=== PATIENT | male | born 1955 | race American Indian/Alaskan Native ===

== ENCOUNTER 2021-06-30 12:20 | Inpatient (IN) | payer SELFPAY ==
--- NOTE | 2021-06-30 12:36 | Emergency Department Report ---
Blank Doc - Documentation Documentation: [facility] Consult Note # Demographics Consult Type: Acute Stroke Level 2 (4.5-24 hrs) Patient Location: Emergency Room First Name: Vinay Last Name: Willow Gender: Male Facility: [facility] Time of Initial Page ( Time): 06/30/2021, 12:06 Time of Return Call ( Time): 06/30/2021, 12:06 # HPI History: pt lives in an extended stay hotel, found by staff down for unknwon period of time. has right sided weakness and aphsia # Scores Level of Consciousness 1a: [0] = Alert; keenly responsive LOC Questions 1b: [2] = Answers neither correctly LOC Commands 1c: [0] = Performs both tasks correctly Best Gaze 2: [0] = Normal Visual 3: [0] = No visual loss Facial Palsy 4: [2] = Partial paralysis Motor Arm Left 5a: [0] = No drift Motor Arm Right 5b: [4] = No movement Motor Leg Left 6a: [0] = No drift Motor Leg Right 6b: [3] = No effort against gravity Limb Ataxia 7: [0] = Absent Sensory 8: [0] = Normal Best Language 9: [2] = Severe aphasia Dysarthria 10: [1] = [id number]-[id number] dysarthria Extinction and Inattention 11: [0] = No abnormality NIHSS Total: 14 # PMH-FH-SH Past Medical History: A-fib unknown Medications: unknown # Data Head CT: preliminarily reviewed by me, please refer to radiology read for official reading subacute ischemic stroke # Assessment Impression: Ischemic Stroke (Acute) # Plan Thrombolytic/Intervention: NOT IV Thrombolysis or IA Intervention candidate Thrombolytic Exclusion: > 4.5 hours Intraarterial Exclusion: unfavorable imaging/hypodensity Blood Pressure Management: labetolol Target Blood Pressure: SBP < 220 SBP > 100 Labs: hemoglobin A1c lipid panel Imaging: (urgency: STAT): CT Angiogram Head and CT Angiogram Neck AND call back with results if abnormal Imaging: (urgency: routine): MRI Brain without contrast Diagnostic Test: echo without bubble study Therapy/Evaluation: NPO until swallow evaluation PT/OT evaluation speech/swallow consultation Medication: aspirin 81 mg daily start statin with goal of LDL < 70 DVT Prophylaxis: SCD Other: LDL < 70 If patient has any neurological deterioration please call me back immediately permissive hypertension telemetry monitoring I have discussed my recommendations with the referring provider Disposition: admit # Logistics Telemedicine: Interactive 2 way audio and visual telecommunication technology was utilized during this visit
--- NOTE | 2021-06-30 13:05 | Cat Scan Report ---
CT HEAD WITHOUT CONTRAST INDICATION / CLINICAL INFORMATION: CODE STROKE CALL ER MAIN AT 8199 Stroke symptoms. TECHNIQUE: All CT scans at this location are performed using CT dose reduction for ALARA by means of automated e xposure control. COMPARISON: None available. FINDINGS: HEMORRHAGE: No evidence of intracranial hemorrhage or extra-axial fluid collection. EXTRA-AXIAL SPACES: Cortical sulci and sylvian fissures are enlarged reflecting a degree of parenchym al volume loss which greater than expected for the patient's age of 65 years. Basilar cisterns have a n unremarkable appearance. VENTRICULAR SYSTEM: The third and lateral ventricles are mildly enlarged reflecting presence of paren chymal volume loss. CEREBRAL PARENCHYMA: There is a region of decreased brain parenchymal attenuation in the left cerebra l hemisphere involving portions of the posterior frontal and occipital lobes secondary to recent post erior division left MCA infarction. There is mild mass effect with effacement of adjacent cortical hendricks lci. There is no indication of hemorrhagic transformation. I suspect that this left MCA infarction is at least 8 to 12 hours old. Additionally noted is a focus of decreased brain parenchymal attenuation in the left gangliocapsular region consistent with infarction, age indeterminate. Periventricular an d deep white matter lucency is observed. This is probably secondary to microvascular ischemic change. MIDLINE SHIFT OR HERNIATION: There is no midline shift. CEREBELLUM / BRAINSTEM: Brainstem has an unremarkable appearance. Age related cerebellar atrophy is n oted. MIDLINE STRUCTURES:Pituitary gland has an unremarkable appearance. No abnormalities are seen in the p ineal region. INTRACRANIAL VESSELS:Calcified atherosclerotic plaque is present along the course of the cavernous se gments of both internal carotid arteries. Similar findings are seen at the distal vertebral arteries. CRANIOCERVICAL JUNCTION:No significant abnormality. ORBITS: visualized portions of the orbits have an unremarkable appearance. SOFT TISSUES of HEAD: No significant abnormality. CALVARIUM: Evaluation of bone windows reveals no abnormalities. PARANASAL SINUSES / MASTOID AIR CELLS: Paranasal sinuses are free from inflammatory mucosal disease. Mastoid air cells are normally pneumatized. ADDITIONAL FINDINGS: None. IMPRESSION: 1. Evidence of recent infarction involving anterior division left MCA territory. 2. No indication of intracranial hemorrhage. CODE STROKE: Time of Communication (CAFE SERVER/CDT): 1150 central standard time Licensed Practitioner Receiving Report: Dr. Arline Mckinley, [facility] emergency department Signer Name: Yogesh Alcala MD Signed: 06/30/2021 1:00 PM Workstation Name: [id number]
--- NOTE | 2021-06-30 13:22 | Cat Scan Report ---
CTA neck without and with intravenous contrast material CLINICAL HISTORY: CODE STROKE CALL ER MAIN AT 8199 stroke sx OMNI 350 100 ML TECHNIQUE: Following acquisition of a timing bolus 0.625 mm thick contiguous axial scans were obtained from aort ic arch to the skull base during rapid bolus intravenous contrast infusion. In addition to evaluation of axial source images multiplanar reconstructions were produced and reviewed for this report. 3 angella ne MIP reconstructions were produced and reviewed. Contrast dose report: Omnipaque 350: 100 ml, administered intravenously All CT examinations performed at this facility utilize modulated dose reduction, iterative reconstruc tion or weight-based dosing, as appropriate, to obtain a radiation dose which is as low as can reason ably be achieved. FINDINGS: Thoracic aorta:No abnormalities are identified along the course of the thoracic aorta.. There is a co mmon origin of the brachiocephalic and left common carotid artery. This is a common anatomical variat ion. The origins of the great vessels have an otherwise unremarkable appearance. Brachiocephalic saad ry, left common carotid artery origin and left subclavian artery all have an unremarkable appearance. Right carotid artery:No abnormalities are seen along the course of the RCCA, at the right carotid bif urcation or along the cervical portions of the GREGORIA. Note is made of moderate tortuosity of the dista l R ICA. Left carotid artery: No abnormalities are noted along the course of the left common carotid artery, a t the left carotid bifurcation or along the course of the cervical segments of the LICA. Incidental n ote is made of moderate tortuosity of the distal LICA. Posterior circulation:The vertebral arteries have an unremarkable appearance. Left vertebral artery i s dominant. Both vertebral arteries contribute to the basilar artery origin. The basilar artery has a n unremarkable appearance. The degree of stenosis, if any, is determined utilizing NASCET like criteria. In this case there is no indication of hemodynamically significant stenosis at the carotid bifurcations or elsewhere. Evaluation of the nonvascular soft tissue structures reveal no abnormality. There is no indication of cervical lymphadenopathy. No abnormalities are seen along the course of the airway. Visualized porti ons of the parotid glands and the submandibular salivary glands have a normal appearance. Thyroid gla nd has a normal appearance. Evaluation of the lung apices reveals no evidence of lung nodule or infil trate. Evaluation of the cervical spine is remarkable for moderate cervical spondylosis with advanced facet arthropathy is evident at the C4-5 level left. There is no indication of central canal stenosis. IMPRESSION: 1. No indication of hemodynamically significant stenosis at the carotid bifurcations or elsewhere. CTA head with intravenous contrast CLINICAL HISTORY: CODE STROKE CALL ER MAIN AT 8199 stroke sx OMNI 350 100 ML TECHNIQUE: 0.625 mm thick contiguous axial scans were obtained from the skull base to the skull vertex during r apid bolus administration of intravenous contrast material. Multiplanar reconstructions were produced in the coronal and sagittal planes. In addition 3 plane MIP instructions were produced and reviewed for this report. The axial source images and reconstructed images were reviewed for this report. CONTRAST DOSE REPORT: Omnipaque 350: 100 ml administered intravenously. All CT scans at this location are performed using CT dose reduction for [employer] by means of automated e xposure control. FINDINGS: Internal carotid arteries:Cassandra, cavernous, opthalmic, clinoid and supraclinoid segments of the ICAs have an unremarkable appearance. Middle cerebral arteries:Evaluation of the left middle cerebral artery reveals a decreased contrast o pacification of a proximal M2 branch of the left MCA consistent with occlusion or partial occlusion o f this vessel. In addition several M2 segments of the left MCA show decreased contrast enhancement co mpared to normal adjacent branch vessels. Right middle cerebral artery has a normal appearance. There is no indication of stenosis along the course of the M1 segment. Normal M2 and M3 branches are obser kyree. Anterior cerebral arteries:Bilaterally symmetrical A1 segments are demonstrated. No abnormalities are seen along the course of the A2 segments or their visualized pericallosal branches. Intact anterior communicating artery is identified. Vertebral arteries:Bilaterally symmetrical vertebral arteries are demonstrated. Both vertebral arteri es contribute to the basilar artery origin. Basilar artery:Basilar artery has an unremarkable appearance. Posterior cerebral arteries:Bilaterally symmetrical posterior cerebral arteries are identified. Post erior communicating arteries are not visualized. [place]:Not intact. see above. Dural sinuses: Dural venous sinuses are well demonstrated on this exam. There is no evidence of dural sinus thrombosis. IMPRESSION: Findings suggest occlusion or partial occlusion of the proximal M2 branch of the left middle cerebral artery as described above. CODE STROKE: Time of Communication (FIREFIGHTING EQUIPMENT SPECIALIST/CDT): 1214 Central standard time Licensed Practitioner Receiving Report: Dr. Arline Akins, [facility] emergency department. Signer Name: Yogesh Alcala MD Signed: 06/30/2021 1:17 PM Workstation Name: [id number]
[2021-06-30 13:23] LABS: Basophils % (Auto) 0.4 % (0.0-1.8); Eosinophils % (Auto) 0.1 % (0.0-4.3); Hematocrit 47.4 % (35.5-45.6); Hemoglobin 16.2 gm/dl (11.8-15.2); Lymphocytes # (Auto) 0.7 K/mm3 (1.2-5.4); Lymphocytes % (Auto) 8.2 % (13.4-35.0); Mean Corpuscular HGB Conc 34 % (32-34); Mean Corpuscular Volume 82 fl (84-94); Monocytes # (Auto) 0.4 K/mm3 (0.0-0.8); Monocytes % (Auto) 5.3 % (0.0-7.3); Platelet Count 215 K/mm3 (140-440); Red Blood Count 5.75 M/mm3 (3.65-5.03); Red Cell Distribution Width 13.6 % (13.2-15.2)
[2021-06-30] MEDS ORDERED: ASPIRIN 300 MG RECT SUPP PR ONE (13:25)
[2021-06-30] MEDS ORDERED: SODIUM CHLORIDE 0.9% 500 ML 500 ML IV ONE (13:25)
[2021-06-30] MEDS ORDERED: METOPROLOL TARTRATE 5 MG/5 ML INJ IV ONE (13:26)
[2021-06-30 13:35] LABS: INR 0.88 (0.87-1.13); Partial Thromboplastin Time 24.1 Sec. (24.2-36.6)
[2021-06-30 13:36] LABS: Thrombin Time 17.5 Sec. (15.1-19.6)
[2021-06-30 14:29] LABS: Creatine Kinase MB 3.3 ng/mL (0.0-4.0)
[2021-06-30 14:43] LABS: Alanine Aminotransferase 18 units/L (7-56); Albumin 4.5 g/dL (3.9-5); BUN/Creatinine Ratio 12; Blood Urea Nitrogen 14 mg/dL (9-20); Calcium 9.9 mg/dL (8.4-10.2); Hemolysis Index 68
[2021-06-30] MEDS ORDERED: ASPIRIN 81 MG TAB CHEW PO ONE (15:06)
--- NOTE | 2021-06-30 15:06 | Emergency Department Report ---
ED Altered Mental Status HPI - General Chief Complaint: Altered Mental Status Stated Complaint: STROKE Time Seen by Provider: 06/30/21 12:23 Source: EMS Mode of arrival: Stretcher Limitations: Altered Mental Status - History of Present Illness Initial Comments: cva unknown down time found in hotel parking lot pt was found down by staff in the extended stay hotel , unknown time , right wide weakness and aphasia MD Complaint: altered mental status, decreased responsiveness, weakness -: unknown Consistency of Symptoms: constant Context: unknown Associated Symptoms: denies: denies other symptoms, chest pain, cough, diaphoresis, fever/chills, headaches, malaise, nausea/vomiting, rash, seizure, shortness of breath, syncope, foul smelling urine, difficulty walking, diarrhea, incontinence - Related Data Allergies Allergy/AdvReac Type Severity Reaction Status Date / Time Penicillins Allergy Hives Verified 06/30/21 13:15 ED Review of Systems ROS: Stated complaint: STROKE Other details as noted in HPI Comment: All other systems reviewed and negative ED Past Medical Hx - Past Medical History Previous Medical History?: No - Social History Smoking Status: Unknown if ever smoked Substance Use Type: None ED Physical Exam - General Limitations: Altered Mental Status General appearance: obese, other (apahisc non verbal and weak on right side wiuth facial droop ) - Head Head exam: Present: atraumatic, normocephalic - Eye Eye exam: Present: normal appearance - ENT ENT exam: Present: mucous membranes moist - Neck Neck exam: Present: normal inspection - Respiratory Respiratory exam: Present: normal lung sounds bilaterally. Absent: respiratory distress - Cardiovascular Cardiovascular Exam: Present: regular rate, tachycardia. Absent: systolic murmur, diastolic murmur, rubs, gallop - GI/Abdominal GI/Abdominal exam: Present: soft, normal bowel sounds - Rectal Rectal exam: Present: deferred - Extremities Exam Extremities exam: Present: normal inspection - Back Exam Back exam: Present: normal inspection - Expanded Neurological Exam Expanded Neurological exam: Present: innattentive, expressive aphasia Patient oriented to: Absent: person, place, time Speech: Present: expressive aphasia Motor strength exam: RUE: 0, RLE: 0 Best Eye Response (Vicki): (4) open spontaneously Best Motor Response (Vicki): (5) localizes to pain Best Verbal Response ([place]): (1) no verbal response Vicki Total: 10 - Psychiatric Psychiatric exam: Present: normal mood - Skin Skin exam: Present: warm, dry, intact, normal color. Absent: rash - Assessment Assessment Interval: Baseline - Level of Consciousness 1a. Level of Consciousness: alert/keenly responsive - LOC Questions 1b. LOC Questions: answers no questions correctly - LOC Command 1c. LOC Commands: performs tasks correctly - Best Gaze 2. Best Gaze: normal - Visual 3. Visual: no visual loss - Facial Palsy 4. Facial Palsy: minor paralysis - Motor Arm 5a. Motor Arm Left: no drift 5b. Motor Arm Right: drift - Motor Leg 6a. Motor Leg Left: no movement 6b. Motor Leg Right: no gravity effort - Limb Ataxia 7. Limb Ataxia: absent - Sensory 8. Sensory: normal - Best Language 9. Best Language: severe aphasia - Dysarthria 10. Dysarthria: mild/moderate dysarthria - Extinction and Inattention 11. Extinction/Inattention: no abnormality - Scoring Total Score: 14 Stroke Severity: Moderate Stroke ED Course Vital Signs 06/30/21 06/30/21 06/30/21 12:43 12:46 12:56 Temperature 98.0 F Pulse Rate 89 93 H 84 Respiratory 22 20 16 Rate Blood Pressure 212/110 O2 Sat by Pulse 94 93 92 Oximetry 06/30/21 06/30/21 06/30/21 13:00 13:16 13:49 Temperature Pulse Rate 88 92 H 126 H Respiratory 19 22 Rate Blood Pressure 207/135 207/135 207/121 O2 Sat by Pulse 95 96 Oximetry - Lab Data Result diagrams: 06/30/21 13:11 06/30/21 13:11 Lab Results 06/30/21 06/30/21 06/30/21 Range/Units 13:11 13:11 13:11 WBC 8.4 (4.5-11.0) K/mm3 RBC 5.75 H (3.65-5.03) M/mm3 Hgb 16.2 H (11.8-15.2) gm/dl Hct 47.4 H (35.5-45.6) % MCV 82 L (84-94) fl MCH 28 (28-32) pg MCHC 34 (32-34) % RDW 13.6 (13.2-15.2) % Plt Count 215 (140-440) K/mm3 Lymph % (Auto) 8.2 L (13.4-35.0) % [place] % (Auto) 5.3 (0.0-7.3) % Eos % (Auto) 0.1 (0.0-4.3) % Baso % (Auto) 0.4 (0.0-1.8) % Lymph # (Auto) 0.7 L (1.2-5.4) K/mm3 [place] # (Auto) 0.4 (0.0-0.8) K/mm3 Eos # (Auto) 0.0 (0.0-0.4) K/mm3 Baso # (Auto) 0.0 (0.0-0.1) K/mm3 Seg Neutrophils % 86.0 H (40.0-70.0) % Seg Neutrophils # 7.2 (1.8-7.7) K/mm3 PT 12.9 (12.2-14.9) Sec. INR 0.88 (0.87-1.13) APTT 24.1 L (24.2-36.6) Sec. Thrombin Time 17.5 (15.1-19.6) Sec. Sodium (137-145) mmol/L Potassium (3.6-5.0) mmol/L Chloride (98-107) mmol/L Carbon Dioxide (22-30) mmol/L Anion Gap mmol/L BUN (9-20) mg/dL Creatinine (0.8-1.3) mg/dL Estimated GFR ml/min BUN/Creatinine Ratio % Glucose (75-100) mg/dL Calcium (8.4-10.2) mg/dL Total Bilirubin (0.1-1.2) mg/dL ALT (7-56) units/L Alkaline Phosphatase (35-129) units/L Total Creatine Kinase 174 H (55-170) units/L CK-MB (CK-2) 3.3 (0.0-4.0) ng/mL CK-MB (CK-2) Rel Index 1.8 (0-4) Troponin T < 0.010 (0.00-0.029) ng/mL Total Protein (6.3-8.2) g/dL Albumin (3.9-5) g/dL Albumin/Globulin Ratio % 03// Range/Units 13:11 WBC (4.5-11.0) K/mm3 RBC (3.65-5.03) M/mm3 Hgb (11.8-15.2) gm/dl Hct (35.5-45.6) % MCV (84-94) fl MCH (28-32) pg MCHC (32-34) % RDW (13.2-15.2) % Plt Count (140-440) K/mm3 Lymph % (Auto) (13.4-35.0) % [place] % (Auto) (0.0-7.3) % Eos % (Auto) (0.0-4.3) % Baso % (Auto) (0.0-1.8) % Lymph # (Auto) (1.2-5.4) K/mm3 [place] # (Auto) (0.0-0.8) K/mm3 Eos # (Auto) (0.0-0.4) K/mm3 Baso # (Auto) (0.0-0.1) K/mm3 Seg Neutrophils % (40.0-70.0) % Seg Neutrophils # (1.8-7.7) K/mm3 PT (12.2-14.9) Sec. INR (0.87-1.13) APTT (24.2-36.6) Sec. Thrombin Time (15.1-19.6) Sec. Sodium 142 (137-145) mmol/L Potassium 5.0 (3.6-5.0) mmol/L Chloride 105.5 (98-107) mmol/L Carbon Dioxide 24 (22-30) mmol/L Anion Gap 18 mmol/L BUN 14 (9-20) mg/dL Creatinine 1.2 (0.8-1.3) mg/dL Estimated GFR > 60 ml/min BUN/Creatinine Ratio 12 % Glucose 101 H (75-100) mg/dL Calcium 9.9 (8.4-10.2) mg/dL Total Bilirubin 1.40 H (0.1-1.2) mg/dL ALT 18 (7-56) units/L Alkaline Phosphatase 69 (35-129) units/L Total Creatine Kinase (55-170) units/L CK-MB (CK-2) (0.0-4.0) ng/mL CK-MB (CK-2) Rel Index (0-4) Troponin T (0.00-0.029) ng/mL Total Protein 7.3 (6.3-8.2) g/dL Albumin 4.5 (3.9-5) g/dL Albumin/Globulin Ratio 1.6 % - Radiology Data Radiology results: report reviewed, image reviewed - Medical Decision Making bebetoke alerted on arrival , CT scan shwoed acute to subacute CVA , not a c andidate for TPA since it unknown time, spoke with dr Chandler . CTA showd mid M2 occlusion, re spoke with dr chandler not candidate for thembectomy, asprin given and will admit for stroke work up , HTn controlled with lopressor and labetalol Critical Care Time: Yes Critical care time in (mins) excluding proc time.: 65 Critical care attestation.: If time is entered above; I have spent that time in minutes in the direct care of this critically ill patient, excluding procedure time. 65 Critical Care Time: 65 ED Disposition Clinical Impression: Acute CVA (cerebrovascular accident), Altered mental status Disposition: 09 ADMITTED INPATIENT Is pt being admited?: Yes Does the pt Need Aspirin: Yes Condition: Stable Referrals: PRIMARY CARE, [Primary Care Provider] - 3-5 Days
[2021-06-30] MEDS ORDERED: ONDANSETRON 4 MG/2 ML INJ IV PRN (16:01)
[2021-06-30] MEDS ORDERED: MAGNESIUM HYDROXIDE (MOM) ORAL LIQD UDC PO PRN (16:01)
[2021-06-30] MEDS ORDERED: MORPHINE 2 MG/1 ML INJ IV PRN (16:01)
[2021-06-30] MEDS ORDERED: METOCLOPRAMIDE 10 MG TAB PO PRN (16:01)
[2021-06-30] MEDS ORDERED: PROMETHAZINE 25 MG RECT SUPP PR PRN (16:01)
[2021-06-30] MEDS ORDERED: HYDROmorphone 1 MG/1 ML INJ IV PRN (16:01)
[2021-06-30] MEDS ORDERED: ACETAMINOPHEN 325 MG TAB PO PRN (16:01)
--- NOTE | 2021-06-30 16:01 | History and Physical Report ---
History of Present Illness Chief complaint: He seemed out of it History of present illness: 65 YO Male with No PMH presents ED for evaluation. Patient is confused and lethargic and is unable provide history. Patient history taken EMS staff, ED staff, as well as hotel staff. Hotel staff report "he seemed out of it". Patient was found down and unresponsive in the parking lot of his room by hotel staff at a local extended stay hotel where the patient currently resides. EMS was notified and upon arrival the patient was found to have a neurologic deficit. A code stroke was called and the patient was transported to [facility] for further care and evaluation of the aforementioned symptoms. The patient was seen and evaluated in the emergency department. All lab and imaging studies reviewed. Patient found to have evidence of a left MCA stroke complicated by hemiparesis, dysarthria, and dysphagia. Patient found to be outside therapeutic window for TPA. Patient admitted to medical floor and initiated on CVA pro tocol. No reports of fever, chills, chest pain, palpitation, productive cough, skin rash, trauma, recent contact, or known exposure to COVID-19. No prior admission for review. No medication listed at time of admission for reconciliation. Advanced care planning conducted in ED. Patient is lethargic, evaluation but has a positive gag reflex and is able to protect his airway without difficulty. Past History Past Medical History: No medical history, other (Unable to obtain) Past Surgical History: No surgical history, Other (Unable to obtain) Social history: single. denies: smoking, alcohol abuse, prescription drug abuse Family history: no significant family history, other (Unable to obtain) Medications and Allergies Allergies Allergy/AdvReac Type Severity Reaction Status Date / Time Penicillins Allergy Hives Verified 06/30/21 13:15 Review of Systems ROS unobtainable: due to mental status Exam - Constitutional Vitals: Temp Pulse Resp BP Pulse Ox 98.0 F 73 22 209/127 96 06/30/21 12:56 06/30/21 14:45 06/30/21 13:16 06/30/21 14:45 06/30/21 13:16 General appearance: Present: mild distress - EENT Eyes: Present: PERRL ENT: hearing decreased - Neck Neck: Present: supple, normal ROM - Respiratory Respiratory effort: normal Respiratory: bilateral: CTA - Cardiovascular Heart Sounds: Present: S1 & S2. Absent: rub, click - Extremities Extremities: pulses symmetrical, No edema Peripheral Pulses: within normal limits - Abdominal General gastrointestinal: Present: soft, non-tender, non-distended, normal bowel sounds Male genitourinary: Present: normal - Integumentary Integumentary: Present: clear, dry - Musculoskeletal Musculoskeletal: generalized weakness - Psychiatric Psychiatric: no appropriate mood/affect, no intact judgment & insight, no memory intact - Neurologic Neurologic: no CNII-XII intact, focal deficits, no moves all extremities, no gait normal HEART Score - HEART Score Troponin: Troponin T < 0.010 ng/mL (0.00-0.029) 06/30/21 13:11 Results - Labs CBC & Chem 7: 06/30/21 13:11 06/30/21 13:11 Labs: Abnormal lab results 06/30/21 06/30/21 06/30/21 Range/Units 13:11 13:11 13:11 RBC 5.75 H (3.65-5.03) M/mm3 Hgb 16.2 H (11.8-15.2) gm/dl Hct 47.4 H (35.5-45.6) % MCV 82 L (84-94) fl Lymph % (Auto) 8.2 L (13.4-35.0) % Lymph # (Auto) 0.7 L (1.2-5.4) K/mm3 Seg Neutrophils % 86.0 H (40.0-70.0) % APTT 24.1 L (24.2-36.6) Sec. Glucose (75-100) mg/dL Total Bilirubin (0.1-1.2) mg/dL Total Creatine Kinase 174 H (55-170) units/L 06/30/21 Range/Units 13:11 RBC (3.65-5.03) M/mm3 Hgb (11.8-15.2) gm/dl Hct (35.5-45.6) % MCV (84-94) fl Lymph % (Auto) (13.4-35.0) % Lymph # (Auto) (1.2-5.4) K/mm3 Seg Neutrophils % (40.0-70.0) % APTT (24.2-36.6) Sec. Glucose 101 H (75-100) mg/dL Total Bilirubin 1.40 H (0.1-1.2) mg/dL Total Creatine Kinase (55-170) units/L Assessment and Plan - Patient Problems (1) Acute CVA (cerebrovascular accident) Current Visit: Yes Status: Acute Plan to address problem: CVA protocol: CT head, neuro check, seizure precaution, aspiration precautions, fall precautions, antiplatelet therapy, lipid panel, statin therapy, echocardiogram, carotid Doppler. (2) Accelerated hypertension Current Visit: Yes Status: Acute Plan to address problem: Monitor blood pressure every shift, continue medical management, permissive hypertension overnight. (3) Right hemiparesis Current Visit: Yes Status: Acute Plan to address problem: Physical therapy consulted, supportive care, continue medical management. (4) Dysphagia Current Visit: Yes Status: Acute Qualifiers: Dysphagia type: oropharyngeal phase Qualified Code(s): R13.12 - Dysphagia, oropharyngeal phase Plan to address problem: Speech therapy consulted, dysphagia diet as per speech therapy recommendations. (5) Dysarthria due to acute cerebrovascular accident (CVA) Current Visit: Yes Status: Acute Plan to address problem: Speech therapy consulted, supportive care, (6) DVT prophylaxis Current Visit: Yes Status: Acute Plan to address problem: SCDs bilateral lower extremities while in bed (7) Advance care planning Current Visit: Yes Status: Acute Plan to address problem: Disease education conducted, care plan discussed, prognosis discussed. Case management consulted for assistance with discharge planning. Patient is unfunded and require outpatient support, and possible placement.
--- NOTE | 2021-06-30 17:10 | Vascular Lab Report ---
DUPLEX DOPPLER ULTRASOUND CAROTID, BILATERAL INDICATION / CLINICAL INFORMATION: stroke. COMPARISON: None available. FINDINGS: RIGHT CAROTID: - PLAQUE ESTIMATE (%): < 50% - CCA velocity: 47 cm/sec. - ICA peak systolic velocity: 41 cm/sec. - ICA/CCA PSV Ratio: 0.9 Right Vertebral Artery: Antegrade flow. LEFT CAROTID: - PLAQUE ESTIMATE: < 50% - CCA velocity: 49 cm/sec. - ICA peak systolic velocity: 50 to cm/sec. - ICA/CCA PSV Ratio: 1.1 Left Vertebral Artery: Antegrade flow. IMPRESSION: 1. Right Internal Carotid Artery: Less than 50% diameter stenosis. 2. Left Internal Carotid Artery: Less than 50% diameter stenosis. Velocity criteria are extrapolated from diameter data as defined by the Society of Radi[employer] [place] [facility] Consensus Conference, Radiology 2003; 229;[id number]. NO STENOSIS (NORMAL) * Plaque = none; ICA PSV < 125 cm/sec; ICA/CCA PSV Ratio < 2.0 <50% STENOSIS * Plaque < 50%; ICA PSV < 125 cm/sec; ICA/CCA PSV Ratio < 2.0 50-69% STENOSIS * Plaque > 50%; ICA PSV = 125-230 cm/sec; ICA/CCA PSV Ratio = 2.0-4.0 >70% BUT <100% STENOSIS * Plaque > 50%; ICA PSV > 230 cm/sec; ICA/CCA PSV Ratio > 4.0 NEAR OCCLUSION * Plaque = visible lumen; ICA PSV = high/low/none; ICA/CCA PSV Ratio = variable TOTAL OCCLUSION * Plaque = no lumen; ICA PSV = none; ICA/CCA PSV Ratio = N/A Signer Name: Alexi Conte MD Signed: 06/30/2021 5:06 PM Workstation Name: [id number]
[2021-06-30] MEDS ORDERED: niCARdipine 50 MG in SODIUM CHLORIDE 0.9% 250ML 230 ML IV SCH (19:20)
[2021-06-30] MEDS ORDERED: hydrALAZINE 20 MG/1 ML INJ IV PRN (19:38)
[2021-07-01] MEDS: ASPIRIN 325 MG TAB PO SCH (09:04)
[2021-07-01] MEDS: NIFEdipine XL 60 MG TAB PO SCH ×2 (09:04→21:50)
--- NOTE | 2021-07-01 09:15 | Progress Note ---
History Interval history: 65-year-old male with no significant past medical history presented through the emergency department with lethargy and altered mentation. Patient was evaluated through the emergency department and found to have on CTA a left MCA stroke complicated by hemiparesis, dysarthria, and dysphagia. Patient found to be outside therapeutic window for TPA. Patient admitted to medical floor and initiated on CVA protocol. Acute left MCA CVA Accelerated hypertension Right hemiparesis Oropharyngeal dysphagia Dysarthria 07/01/2021. Follow-up echocardiogram. Await neurology consultation. Await PT/OT/ST evaluations. Continue secondary prevention with aspirin and Lipitor. Hospitalist Physical - Constitutional Vitals: Temp Pulse Resp BP Pulse Ox 98.5 F 114 H 16 170/117 95 07/01/21 04:41 07/01/21 04:41 07/01/21 04:41 07/01/21 04:41 07/01/21 04:41 General appearance: Present: mild distress HEART Score - HEART Score Troponin: Troponin T < 0.010 ng/mL (0.00-0.029) 06/30/21 13:11 Results - Labs CBC & Chem 7: 06/30/21 13:11 06/30/21 13:11 Labs: Laboratory Last Values WBC 8.4 K/mm3 (4.5-11.0) 06/30/21 13:11 RBC 5.75 M/mm3 (3.65-5.03) H 06/30/21 13:11 Hgb 16.2 gm/dl (11.8-15.2) H 06/30/21 13:11 Hct 47.4 % (35.5-45.6) H 06/30/21 13:11 MCV 82 fl (84-94) L 06/30/21 13:11 MCH 28 pg (28-32) 06/30/21 13:11 MCHC 34 % (32-34) 06/30/21 13:11 RDW 13.6 % (13.2-15.2) 06/30/21 13:11 Plt Count 215 K/mm3 (140-440) 06/30/21 13:11 Lymph % (Auto) 8.2 % (13.4-35.0) L 06/30/21 13:11 [place] % (Auto) 5.3 % (0.0-7.3) 06/30/21 13:11 Eos % (Auto) 0.1 % (0.0-4.3) 06/30/21 13:11 Baso % (Auto) 0.4 % (0.0-1.8) 06/30/21 13:11 Lymph # (Auto) 0.7 K/mm3 (1.2-5.4) L 06/30/21 13:11 [place] # (Auto) 0.4 K/mm3 (0.0-0.8) 06/30/21 13:11 Eos # (Auto) 0.0 K/mm3 (0.0-0.4) 06/30/21 13:11 Baso # (Auto) 0.0 K/mm3 (0.0-0.1) 06/30/21 13:11 Seg Neutrophils % 86.0 % (40.0-70.0) H 06/30/21 13:11 Seg Neutrophils # 7.2 K/mm3 (1.8-7.7) 06/30/21 13:11 PT 12.9 Sec. (12.2-14.9) 06/30/21 13:11 INR 0.88 (0.87-1.13) 06/30/21 13:11 APTT 24.1 Sec. (24.2-36.6) L 06/30/21 13:11 Thrombin Time 17.5 Sec. (15.1-19.6) 06/30/21 13:11 Sodium 142 mmol/L (137-145) 06/30/21 13:11 Potassium 5.0 mmol/L (3.6-5.0) 06/30/21 13:11 Chloride 105.5 mmol/L (98-107) 06/30/21 13:11 Carbon Dioxide 24 mmol/L (22-30) 06/30/21 13:11 Anion Gap 18 mmol/L 06/30/21 13:11 BUN 14 mg/dL (9-20) 06/30/21 13:11 Creatinine 1.2 mg/dL (0.8-1.3) 06/30/21 13:11 Estimated GFR > 60 ml/min 06/30/21 13:11 BUN/Creatinine Ratio 12 % 06/30/21 13:11 Glucose 101 mg/dL (75-100) H 06/30/21 13:11 Calcium 9.9 mg/dL (8.4-10.2) 06/30/21 13:11 Total Bilirubin 1.40 mg/dL (0.1-1.2) H 06/30/21 13:11 AST 20 units/L (5-40) 06/30/21 13:11 ALT 18 units/L (7-56) 06/30/21 13:11 Alkaline Phosphatase 69 units/L (35-129) 06/30/21 13:11 Total Creatine Kinase 174 units/L (55-170) H 06/30/21 13:11 CK-MB (CK-2) 3.3 ng/mL (0.0-4.0) 06/30/21 13:11 CK-MB (CK-2) Rel Index 1.8 (0-4) 06/30/21 13:11 Troponin T < 0.010 ng/mL (0.00-0.029) 06/30/21 13:11 Total Protein 7.3 g/dL (6.3-8.2) 06/30/21 13:11 Albumin 4.5 g/dL (3.9-5) 06/30/21 13:11 Albumin/Globulin Ratio 1.6 % 06/30/21 13:11 Purcell/IV: Voiding Method Condom Catheter Active Medications - Current Medications Current Medications: Generic Name Dose Route Start Last Admin Trade Name Freq PRN Reason Stop Dose Admin Acetaminophen 650 mg 06/30/21 16:01 Acetaminophen 325 Mg Tab PO Q4H PRN Pain, Mild (1-3) Aspirin 325 mg 07/01/21 10:00 07/01/21 09:04 Aspirin 325 Mg Tab PO 325 mg QDAY SIVA Administration Atorvastatin Calcium 40 mg 06/30/21 22:00 06/30/21 21:51 Atorvastatin 40 Mg Tab PO Not Given QHS SIVA Bisacodyl 10 mg 06/30/21 16:01 Bisacodyl 10 Mg Rect Supp [place] QDAY PRN Constipation Hydralazine HCl 10 mg 06/30/21 19:38 Hydralazine 20 Mg/1 Ml Inj IV Q8H PRN Hypertension Hydromorphone HCl 0.5 mg 06/30/21 16:01 Hydromorphone 1 Mg/1 Ml Inj IV Q23H PRN Pain , Severe (7-10) Magnesium Hydroxide 30 ml 06/30/21 16:01 Magnesium Hydroxide (Mom) Oral Liqd Udc PO Q4H PRN Constipation Metoclopramide HCl 10 mg 06/30/21 16:01 Metoclopramide 10 Mg Tab PO Q6H PRN Nausea And Vomiting Morphine Sulfate 1 mg 06/30/21 16:01 Morphine 2 Mg/1 Ml Inj IV Q8H PRN Pain, Moderate (4-6) Nifedipine 60 mg 07/01/21 08:00 07/01/21 09:04 Nifedipine Xl 60 Mg Tab PO 60 mg Q12HR SIVA Administration Ondansetron HCl 4 mg 06/30/21 16:01 Ondansetron 4 Mg/2 Ml Inj IV Q8H PRN Nausea And Vomiting Promethazine HCl 25 mg 06/30/21 16:01 Promethazine 25 Mg Rect Supp [place] Q6H PRN Nausea And Vomiting Sodium Chloride 10 ml 06/30/21 16:01 Sodium Chloride 0.9% 10 Ml Flush Syringe IV PRN PRN LINE FLUSH
[2021-07-01] MEDS: hydrALAZINE 20 MG/1 ML INJ IV PRN (10:41)
[2021-07-02 05:21] LABS: Basophils % (Auto) 0.3 % (0.0-1.8); Eosinophils # (Auto) 0.1 K/mm3 (0.0-0.4); Eosinophils % (Auto) 0.6 % (0.0-4.3); Hematocrit 48.8 % (35.5-45.6); Hemoglobin 15.7 gm/dl (11.8-15.2); Lymphocytes # (Auto) 1.5 K/mm3 (1.2-5.4); Lymphocytes % (Auto) 15.9 % (13.4-35.0); Mean Corpuscular HGB Conc 32 % (32-34); Mean Corpuscular Volume 83 fl (84-94); Monocytes # (Auto) 0.9 K/mm3 (0.0-0.8); Monocytes % (Auto) 9.9 % (0.0-7.3); Platelet Count 216 K/mm3 (140-440); Red Blood Count 5.89 M/mm3 (3.65-5.03); Red Cell Distribution Width 13.9 % (13.2-15.2)
[2021-07-02 05:32] LABS: BUN/Creatinine Ratio 16; Blood Urea Nitrogen 18 mg/dL (9-20); Calcium 9.7 mg/dL (8.4-10.2); Hemolysis Index 7
--- NOTE | 2021-07-02 10:37 | Progress Note ---
Assessment and Plan Assessment and plan: 65-year-old male with no significant past medical history presented through the emergency department with lethargy and altered mentation. Patient was evaluated through the emergency department and found to have on CTA a left MCA stroke complicated by hemiparesis, dysarthria, and dysphagia. Patient found to be outside therapeutic window for TPA. Patient admitted to medical floor and initiated on CVA protocol. Acute left MCA CVA Accelerated hypertension Right hemiparesis Oropharyngeal dysphagia Dysarthria 07/01/2021. Follow-up echocardiogram. Await neurology consultation. Await PT/OT/ST evaluations. Continue secondary prevention with aspirin and Lipitor. 07/02/2021. Echocardiogram reveals LVEF of 55-60% and right ventricular systolic function normal. No PFO. Carotid ultrasound found to be negative. Await physical therapy recommendations. Speech therapy reports that patient dem onstrates delayed oral transit time with a swallow reflex delay with pureed consistencies. Patient requires tactile stimulation to close his mouth for chewing as he fails to follow commands. With regular liquids, swallow reflex is timely with good laryngeal elevation. No evidence of aspiration was identified. Continue with dysphagia pured diet. Continue aspirin and Lipitor. Await neurology consultation History Interval history: No new issues overnight Hospitalist Physical - Constitutional Vitals: Temp Pulse Resp BP Pulse Ox 98.0 F 91 H 20 128/86 92 07/01/21 23:04 07/01/21 23:04 07/01/21 23:04 07/01/21 23:04 07/01/21 23:04 General appearance: Present: mild distress - EENT Eyes: Present: PERRL, EOM intact ENT: hearing intact, clear oral mucosa, dentition normal - Neck Neck: Present: supple, normal ROM - Respiratory Respiratory effort: normal Respiratory: bilateral: CTA - Cardiovascular Rhythm: regular Heart Sounds: Present: S1 & S2. Absent: gallop, rub - Extremities Extremities: no ischemia, No edema, Full ROM - Abdominal General gastrointestinal: soft, non-tender, non-distended, normal bowel sounds - Integumentary Integumentary: Present: clear, warm, dry - Neurologic Neurologic: CNII-XII intact, moves all extremities HEART Score - HEART Score Troponin: Troponin T < 0.010 ng/mL (0.00-0.029) 07/01/21 23:26 Results - Labs CBC & Chem 7: 07/02/21 04:39 07/02/21 04:39 Labs: Laboratory Last Values WBC 9.2 K/mm3 (4.5-11.0) 07/02/21 04:39 RBC 5.89 M/mm3 (3.65-5.03) H 07/02/21 04:39 Hgb 15.7 gm/dl (11.8-15.2) H 07/02/21 04:39 Hct 48.8 % (35.5-45.6) H 07/02/21 04:39 MCV 83 fl (84-94) L 07/02/21 04:39 MCH 27 pg (28-32) L 07/02/21 04:39 MCHC 32 % (32-34) 07/02/21 04:39 RDW 13.9 % (13.2-15.2) 07/02/21 04:39 Plt Count 216 K/mm3 (140-440) 07/02/21 04:39 Lymph % (Auto) 15.9 % (13.4-35.0) 07/02/21 04:39 [place] % (Auto) 9.9 % (0.0-7.3) H 07/02/21 04:39 Eos % (Auto) 0.6 % (0.0-4.3) 07/02/21 04:39 Baso % (Auto) 0.3 % (0.0-1.8) 07/02/21 04:39 Lymph # (Auto) 1.5 K/mm3 (1.2-5.4) 07/02/21 04:39 [place] # (Auto) 0.9 K/mm3 (0.0-0.8) H 07/02/21 04:39 Eos # (Auto) 0.1 K/mm3 (0.0-0.4) 07/02/21 04:39 Baso # (Auto) 0.0 K/mm3 (0.0-0.1) 07/02/21 04:39 Seg Neutrophils % 73.3 % (40.0-70.0) H 07/02/21 04:39 Seg Neutrophils # 6.7 K/mm3 (1.8-7.7) 07/02/21 04:39 PT 12.9 Sec. (12.2-14.9) 06/30/21 13:11 INR 0.88 (0.87-1.13) 06/30/21 13:11 APTT 24.1 Sec. (24.2-36.6) L 06/30/21 13:11 Thrombin Time 17.5 Sec. (15.1-19.6) 06/30/21 13:11 Sodium 145 mmol/L (137-145) 07/02/21 04:39 Potassium 3.5 mmol/L (3.6-5.0) L D 07/02/21 04:39 Chloride 107.1 mmol/L (98-107) H 07/02/21 04:39 Carbon Dioxide 23 mmol/L (22-30) 07/02/21 04:39 Anion Gap 18 mmol/L 07/02/21 04:39 BUN 18 mg/dL (9-20) 07/02/21 04:39 Creatinine 1.1 mg/dL (0.8-1.3) 07/02/21 04:39 Estimated GFR > 60 ml/min 07/02/21 04:39 BUN/Creatinine Ratio 16 % 07/02/21 04:39 Glucose 114 mg/dL (75-100) H 07/02/21 04:39 Calcium 9.7 mg/dL (8.4-10.2) 07/02/21 04:39 Magnesium 2.00 mg/dL (1.7-2.3) 07/01/21 23:26 Total Bilirubin 1.40 mg/dL (0.1-1.2) H 06/30/21 13:11 AST 20 units/L (5-40) 06/30/21 13:11 ALT 18 units/L (7-56) 06/30/21 13:11 Alkaline Phosphatase 69 units/L (35-129) 06/30/21 13:11 Total Creatine Kinase 174 units/L (55-170) H 06/30/21 13:11 CK-MB (CK-2) 3.3 ng/mL (0.0-4.0) 06/30/21 13:11 CK-MB (CK-2) Rel Index 1.8 (0-4) 06/30/21 13:11 Troponin T < 0.010 ng/mL (0.00-0.029) 07/01/21 23:26 Total Protein 7.3 g/dL (6.3-8.2) 06/30/21 13:11 Albumin 4.5 g/dL (3.9-5) 06/30/21 13:11 Albumin/Globulin Ratio 1.6 % 06/30/21 13:11 Purcell/IV: Voiding Method Condom Catheter Active Medications - Current Medications Current Medications: Generic Name Dose Route Start Last Admin Trade Name Freq PRN Reason Stop Dose Admin Acetaminophen 650 mg 06/30/21 16:01 Acetaminophen 325 Mg Tab PO Q4H PRN Pain, Mild (1-3) Aspirin 325 mg 07/01/21 10:00 07/01/21 09:04 Aspirin 325 Mg Tab PO 325 mg QDAY SIVA Administration Atorvastatin Calcium 40 mg 06/30/21 22:00 07/01/21 21:50 Atorvastatin 40 Mg Tab PO 40 mg QHS SIVA Administration Bisacodyl 10 mg 06/30/21 16:01 Bisacodyl [address] QDAY PRN Constipation Hydralazine HCl 10 mg 07/01/21 10:21 07/01/21 10:41 Hydralazine 20 Mg/1 Ml Inj IV 10 mg Q4HR PRN Administration Hypertension Hydromorphone HCl 0.5 mg 06/30/21 16:01 Hydromorphone 1 Mg/1 Ml Inj IV Q23H PRN Pain , Severe (7-10) Magnesium Hydroxide 30 ml 06/30/21 16:01 Magnesium Hydroxide (Mom) Oral Liqd Udc PO Q4H PRN Constipation Metoclopramide HCl 10 mg 06/30/21 16:01 Metoclopramide 10 Mg Tab PO Q6H PRN Nausea And Vomiting Morphine Sulfate 1 mg 06/30/21 16:01 Morphine 2 Mg/1 Ml Inj IV Q8H PRN Pain, Moderate (4-6) Nifedipine 60 mg 07/01/21 08:00 07/01/21 21:50 Nifedipine Xl 60 Mg Tab PO 60 mg Q12HR SIVA Administration Ondansetron HCl 4 mg 06/30/21 16:01 Ondansetron 4 Mg/2 Ml Inj IV Q8H PRN Nausea And Vomiting Promethazine HCl 25 mg 06/30/21 16:01 Promethazine [address] Q6H PRN Nausea And Vomiting Sodium Chloride 10 ml 06/30/21 16:01 Sodium Chloride 0.9% 10 Ml Flush Syringe IV PRN PRN LINE FLUSH
[2021-07-02] MEDS: ASPIRIN 325 MG TAB PO SCH (12:40)
[2021-07-02] MEDS: NIFEdipine XL 60 MG TAB PO SCH ×2 (12:40→21:42)
[2021-07-02] MEDS: hydrALAZINE 20 MG/1 ML INJ IV PRN (16:24)
[2021-07-03 04:38] LABS: Basophils % (Auto) 0.4 % (0.0-1.8); Eosinophils # (Auto) 0.1 K/mm3 (0.0-0.4); Eosinophils % (Auto) 0.8 % (0.0-4.3); Hematocrit 50.2 % (35.5-45.6); Hemoglobin 16.1 gm/dl (11.8-15.2); Lymphocytes # (Auto) 1.5 K/mm3 (1.2-5.4); Lymphocytes % (Auto) 18.3 % (13.4-35.0); Mean Corpuscular HGB Conc 32 % (32-34); Mean Corpuscular Volume 83 fl (84-94); Monocytes # (Auto) 0.9 K/mm3 (0.0-0.8); Monocytes % (Auto) 10.6 % (0.0-7.3); Platelet Count 238 K/mm3 (140-440); Red Blood Count 6.03 M/mm3 (3.65-5.03); Red Cell Distribution Width 13.9 % (13.2-15.2)
[2021-07-03 04:57] LABS: BUN/Creatinine Ratio 19; Blood Urea Nitrogen 21 mg/dL (9-20); Calcium 9.7 mg/dL (8.4-10.2); Hemolysis Index 4
[2021-07-03] MEDS: NIFEdipine XL 60 MG TAB PO SCH ×2 (09:35→22:08)
[2021-07-03] MEDS: ASPIRIN 325 MG TAB PO SCH (09:35)
--- NOTE | 2021-07-03 10:49 | Progress Note ---
Assessment and Plan Assessment and plan: 65-year-old male with no significant past medical history presented through the emergency department with lethargy and altered mentation. Patient was evaluated through the emergency department and found to have on CTA a left MCA stroke complicated by hemiparesis, dysarthria, and dysphagia. Patient found to be outside therapeutic window for TPA. Patient admitted to medical floor and initiated on CVA protocol. Acute left MCA CVA Accelerated hypertension Right hemiparesis Oropharyngeal dysphagia Dysarthria 07/01/2021. Follow-up echocardiogram. Await neurology consultation. Await PT/OT/ST evaluations. Continue secondary prevention with aspirin and Lipitor. 07/02/2021. Echocardiogram reveals LVEF of 55-60% and right ventricular systolic function normal. No PFO. Carotid ultrasound found to be negative. Await physical therapy recommendations. Speech therapy reports that patient dem onstrates delayed oral transit time with a swallow reflex delay with pureed consistencies. Patient requires tactile stimulation to close his mouth for chewing as he fails to follow commands. With regular liquids, swallow reflex is timely with good laryngeal elevation. No evidence of aspiration was identified. Continue with dysphagia pured diet. Continue aspirin and Lipitor. Await neurology consultation 07/03/2021. Physical therapy recommends acute rehab. Continue aspirin and Lipitor. Await neurology consultation History Interval history: No new issues overnight Hospitalist Physical - Constitutional Vitals: Temp Pulse Resp BP Pulse Ox 98.8 F 101 H 19 150/102 95 07/03/21 09:34 07/03/21 09:34 07/03/21 09:34 07/03/21 09:34 07/03/21 10:00 General appearance: Present: mild distress - EENT Eyes: Present: PERRL, EOM intact ENT: hearing intact, clear oral mucosa, dentition normal - Neck Neck: Present: supple, normal ROM - Respiratory Respiratory effort: normal Respiratory: bilateral: CTA - Cardiovascular Rhythm: regular Heart Sounds: Present: S1 & S2. Absent: gallop, rub - Extremities Extremities: no ischemia, No edema, Full ROM - Abdominal General gastrointestinal: soft, non-tender, non-distended, normal bowel sounds - Integumentary Integumentary: Present: clear, warm, dry - Neurologic Neurologic: CNII-XII intact, moves all extremities HEART Score - HEART Score Troponin: Troponin T < 0.010 ng/mL (0.00-0.029) 07/01/21 23:26 Results - Labs CBC & Chem 7: 07/03/21 04:16 07/03/21 04:16 Labs: Laboratory Last Values WBC 8.3 K/mm3 (4.5-11.0) 07/03/21 04:16 RBC 6.03 M/mm3 (3.65-5.03) H 07/03/21 04:16 Hgb 16.1 gm/dl (11.8-15.2) H 07/03/21 04:16 Hct 50.2 % (35.5-45.6) H 07/03/21 04:16 MCV 83 fl (84-94) L 07/03/21 04:16 MCH 27 pg (28-32) L 07/03/21 04:16 MCHC 32 % (32-34) 07/03/21 04:16 RDW 13.9 % (13.2-15.2) 07/03/21 04:16 Plt Count 238 K/mm3 (140-440) 07/03/21 04:16 Lymph % (Auto) 18.3 % (13.4-35.0) 07/03/21 04:16 [place] % (Auto) 10.6 % (0.0-7.3) H 07/03/21 04:16 Eos % (Auto) 0.8 % (0.0-4.3) 07/03/21 04:16 Baso % (Auto) 0.4 % (0.0-1.8) 07/03/21 04:16 Lymph # (Auto) 1.5 K/mm3 (1.2-5.4) 07/03/21 04:16 [place] # (Auto) 0.9 K/mm3 (0.0-0.8) H 07/03/21 04:16 Eos # (Auto) 0.1 K/mm3 (0.0-0.4) 07/03/21 04:16 Baso # (Auto) 0.0 K/mm3 (0.0-0.1) 07/03/21 04:16 Seg Neutrophils % 69.9 % (40.0-70.0) 07/03/21 04:16 Seg Neutrophils # 5.8 K/mm3 (1.8-7.7) 07/03/21 04:16 PT 12.9 Sec. (12.2-14.9) 06/30/21 13:11 INR 0.88 (0.87-1.13) 06/30/21 13:11 APTT 24.1 Sec. (24.2-36.6) L 06/30/21 13:11 Thrombin Time 17.5 Sec. (15.1-19.6) 06/30/21 13:11 Sodium 143 mmol/L (137-145) 07/03/21 04:16 Potassium 3.5 mmol/L (3.6-5.0) L 07/03/21 04:16 Chloride 106.5 mmol/L (98-107) 07/03/21 04:16 Carbon Dioxide 23 mmol/L (22-30) 07/03/21 04:16 Anion Gap 17 mmol/L 07/03/21 04:16 BUN 21 mg/dL (9-20) H 07/03/21 04:16 Creatinine 1.1 mg/dL (0.8-1.3) 07/03/21 04:16 Estimated GFR > 60 ml/min 07/03/21 04:16 BUN/Creatinine Ratio 19 % 07/03/21 04:16 Glucose 115 mg/dL (75-100) H 07/03/21 04:16 POC Glucose 107 mg/dL (70-105) H 07/02/21 21:15 Calcium 9.7 mg/dL (8.4-10.2) 07/03/21 04:16 Magnesium 2.00 mg/dL (1.7-2.3) 07/01/21 23:26 Total Bilirubin 1.40 mg/dL (0.1-1.2) H 06/30/21 13:11 AST 20 units/L (5-40) 06/30/21 13:11 ALT 18 units/L (7-56) 06/30/21 13:11 Alkaline Phosphatase 69 units/L (35-129) 06/30/21 13:11 Total Creatine Kinase 174 units/L (55-170) H 06/30/21 13:11 CK-MB (CK-2) 3.3 ng/mL (0.0-4.0) 06/30/21 13:11 CK-MB (CK-2) Rel Index 1.8 (0-4) 06/30/21 13:11 Troponin T < 0.010 ng/mL (0.00-0.029) 07/01/21 23:26 Total Protein 7.3 g/dL (6.3-8.2) 06/30/21 13:11 Albumin 4.5 g/dL (3.9-5) 06/30/21 13:11 Albumin/Globulin Ratio 1.6 % 06/30/21 13:11 [place]/IV: Voiding Method Condom Catheter Active Medications - Current Medications Current Medications: Generic Name Dose Route Start Last Admin Trade Name Freq PRN Reason Stop Dose Admin Acetaminophen 650 mg 06/30/21 16:01 Acetaminophen 325 Mg Tab PO Q4H PRN Pain, Mild (1-3) Aspirin 325 mg 07/01/21 10:00 07/03/21 09:35 Aspirin 325 Mg Tab PO 325 mg QDAY SIVA Administration Atorvastatin Calcium 40 mg 06/30/21 22:00 07/02/21 21:42 Atorvastatin 40 Mg Tab PO 40 mg QHS SIVA Administration Bisacodyl 10 mg 06/30/21 16:01 Bisacodyl 10 Mg Rect Supp [place] QDAY PRN Constipation Hydralazine HCl 10 mg 07/01/21 10:21 07/02/21 16:24 Hydralazine 20 Mg/1 Ml Inj IV 10 mg Q4HR PRN Administration Hypertension Hydromorphone HCl 0.5 mg 06/30/21 16:01 Hydromorphone 1 Mg/1 Ml Inj IV Q23H PRN Pain , Severe (7-10) Magnesium Hydroxide 30 ml 06/30/21 16:01 Magnesium Hydroxide (Mom) Oral Liqd Udc PO Q4H PRN Constipation Metoclopramide HCl 10 mg 06/30/21 16:01 Metoclopramide 10 Mg Tab PO Q6H PRN Nausea And Vomiting Morphine Sulfate 1 mg 06/30/21 16:01 Morphine 2 Mg/1 Ml Inj IV Q8H PRN Pain, Moderate (4-6) Nifedipine 60 mg 07/01/21 08:00 07/03/21 09:35 Nifedipine Xl 60 Mg Tab PO 60 mg Q12HR SIVA Administration Ondansetron HCl 4 mg 06/30/21 16:01 Ondansetron 4 Mg/2 Ml Inj IV Q8H PRN Nausea And Vomiting Promethazine HCl 25 mg 06/30/21 16:01 Promethazine 25 Mg Rect Supp [place] Q6H PRN Nausea And Vomiting Sodium Chloride 10 ml 06/30/21 16:01 07/02/21 21:42 Sodium Chloride 0.9% 10 Ml Flush Syringe IV 10 ml PRN PRN Administration LINE FLUSH
[2021-07-03] MEDS: hydrALAZINE 20 MG/1 ML INJ IV PRN (22:11)
--- NOTE | 2021-07-04 08:25 | Progress Note ---
Assessment and Plan Assessment and plan: 65-year-old male with no significant past medical history presented through the emergency department with lethargy and altered mentation. Patient was evaluated through the emergency department and found to have on CTA a left MCA stroke complicated by hemiparesis, dysarthria, and dysphagia. Patient found to be outside therapeutic window for TPA. Patient admitted to medical floor and initiated on CVA protocol. Acute left MCA CVA Accelerated hypertension Right hemiparesis Oropharyngeal dysphagia Dysarthria 07/01/2021. Follow-up echocardiogram. Await neurology consultation. Await PT/OT/ST evaluations. Continue secondary prevention with aspirin and Lipitor. 07/02/2021. Echocardiogram reveals LVEF of 55-60% and right ventricular systolic function normal. No PFO. Carotid ultrasound found to be negative. Await physical therapy recommendations. Speech therapy reports that patient dem onstrates delayed oral transit time with a swallow reflex delay with pureed consistencies. Patient requires tactile stimulation to close his mouth for chewing as he fails to follow commands. With regular liquids, swallow reflex is timely with good laryngeal elevation. No evidence of aspiration was identified. Continue with dysphagia pured diet. Continue aspirin and Lipitor. Await neurology consultation 07/03/2021. Physical therapy recommends acute rehab. Continue aspirin and Lipitor. Await neurology consultation 07/04/2021. Physical therapy recommends acute rehab. Continue aspirin and Lipitor for secondary prevention. Await neurology recommendations. History Interval history: No new issues overnight Hospitalist Physical - Constitutional Vitals: Temp Pulse Resp BP Pulse Ox 97.8 F 89 20 136/97 92 07/04/21 05:10 07/04/21 05:10 07/04/21 05:10 07/04/21 05:10 07/04/21 05:10 General appearance: Present: mild distress - EENT Eyes: Present: PERRL, EOM intact ENT: hearing intact, clear oral mucosa, dentition normal - Neck Neck: Present: supple, normal ROM - Respiratory Respiratory effort: normal Respiratory: bilateral: CTA - Cardiovascular Rhythm: regular Heart Sounds: Present: S1 & S2. Absent: gallop, rub - Extremities Extremities: no ischemia, No edema, Full ROM - Abdominal General gastrointestinal: soft, non-tender, non-distended, normal bowel sounds - Integumentary Integumentary: Present: clear, warm, dry - Neurologic Neurologic: CNII-XII intact, moves all extremities HEART Score - HEART Score Troponin: Troponin T < 0.010 ng/mL (0.00-0.029) 07/01/21 23:26 Results - Labs CBC & Chem 7: 07/03/21 04:16 07/03/21 04:16 Labs: Laboratory Last Values WBC 8.3 K/mm3 (4.5-11.0) 07/03/21 04:16 RBC 6.03 M/mm3 (3.65-5.03) H 07/03/21 04:16 Hgb 16.1 gm/dl (11.8-15.2) H 07/03/21 04:16 Hct 50.2 % (35.5-45.6) H 07/03/21 04:16 MCV 83 fl (84-94) L 07/03/21 04:16 MCH 27 pg (28-32) L 07/03/21 04:16 MCHC 32 % (32-34) 07/03/21 04:16 RDW 13.9 % (13.2-15.2) 07/03/21 04:16 Plt Count 238 K/mm3 (140-440) 07/03/21 04:16 Lymph % (Auto) 18.3 % (13.4-35.0) 07/03/21 04:16 [place] % (Auto) 10.6 % (0.0-7.3) H 07/03/21 04:16 Eos % (Auto) 0.8 % (0.0-4.3) 07/03/21 04:16 Baso % (Auto) 0.4 % (0.0-1.8) 07/03/21 04:16 Lymph # (Auto) 1.5 K/mm3 (1.2-5.4) 07/03/21 04:16 [place] # (Auto) 0.9 K/mm3 (0.0-0.8) H 07/03/21 04:16 Eos # (Auto) 0.1 K/mm3 (0.0-0.4) 07/03/21 04:16 Baso # (Auto) 0.0 K/mm3 (0.0-0.1) 07/03/21 04:16 Seg Neutrophils % 69.9 % (40.0-70.0) 07/03/21 04:16 Seg Neutrophils # 5.8 K/mm3 (1.8-7.7) 07/03/21 04:16 PT 12.9 Sec. (12.2-14.9) 06/30/21 13:11 INR 0.88 (0.87-1.13) 06/30/21 13:11 APTT 24.1 Sec. (24.2-36.6) L 06/30/21 13:11 Thrombin Time 17.5 Sec. (15.1-19.6) 06/30/21 13:11 Sodium 143 mmol/L (137-145) 07/03/21 04:16 Potassium 3.5 mmol/L (3.6-5.0) L 07/03/21 04:16 Chloride 106.5 mmol/L (98-107) 07/03/21 04:16 Carbon Dioxide 23 mmol/L (22-30) 07/03/21 04:16 Anion Gap 17 mmol/L 07/03/21 04:16 BUN 21 mg/dL (9-20) H 07/03/21 04:16 Creatinine 1.1 mg/dL (0.8-1.3) 07/03/21 04:16 Estimated GFR > 60 ml/min 07/03/21 04:16 BUN/Creatinine Ratio 19 % 07/03/21 04:16 Glucose 115 mg/dL (75-100) H 07/03/21 04:16 POC Glucose 115 mg/dL (70-105) H 07/03/21 21:56 Calcium 9.7 mg/dL (8.4-10.2) 07/03/21 04:16 Magnesium 2.00 mg/dL (1.7-2.3) 07/01/21 23:26 Total Bilirubin 1.40 mg/dL (0.1-1.2) H 06/30/21 13:11 AST 20 units/L (5-40) 06/30/21 13:11 ALT 18 units/L (7-56) 06/30/21 13:11 Alkaline Phosphatase 69 units/L (35-129) 06/30/21 13:11 Total Creatine Kinase 174 units/L (55-170) H 06/30/21 13:11 CK-MB (CK-2) 3.3 ng/mL (0.0-4.0) 06/30/21 13:11 CK-MB (CK-2) Rel Index 1.8 (0-4) 06/30/21 13:11 Troponin T < 0.010 ng/mL (0.00-0.029) 07/01/21 23:26 Total Protein 7.3 g/dL (6.3-8.2) 06/30/21 13:11 Albumin 4.5 g/dL (3.9-5) 06/30/21 13:11 Albumin/Globulin Ratio 1.6 % 06/30/21 13:11 [place]/IV: Voiding Method Condom Catheter Active Medications - Current Medications Current Medications: Generic Name Dose Route Start Last Admin Trade Name Freq PRN Reason Stop Dose Admin Acetaminophen 650 mg 06/30/21 16:01 Acetaminophen 325 Mg Tab PO Q4H PRN Pain, Mild (1-3) Aspirin 325 mg 07/01/21 10:00 07/03/21 09:35 Aspirin 325 Mg Tab PO 325 mg QDAY SIVA Administration Atorvastatin Calcium 40 mg 06/30/21 22:00 07/03/21 22:08 Atorvastatin 40 Mg Tab PO 40 mg QHS SIVA Administration Bisacodyl 10 mg 06/30/21 16:01 Bisacodyl 10 Mg Rect Supp MS QDAY PRN Constipation Hydralazine HCl 10 mg 07/01/21 10:21 07/03/21 22:11 Hydralazine 20 Mg/1 Ml Inj IV 10 mg Q4HR PRN Administration Hypertension Hydromorphone HCl 0.5 mg 06/30/21 16:01 Hydromorphone 1 Mg/1 Ml Inj IV Q23H PRN Pain , Severe (7-10) Magnesium Hydroxide 30 ml 06/30/21 16:01 Magnesium Hydroxide (Mom) Oral Liqd Udc PO Q4H PRN Constipation Metoclopramide HCl 10 mg 06/30/21 16:01 Metoclopramide 10 Mg Tab PO Q6H PRN Nausea And Vomiting Morphine Sulfate 1 mg 06/30/21 16:01 Morphine 2 Mg/1 Ml Inj IV Q8H PRN Pain, Moderate (4-6) Nifedipine 60 mg 07/01/21 08:00 07/03/21 22:08 Nifedipine Xl 60 Mg Tab PO 60 mg Q12HR SIVA Administration Ondansetron HCl 4 mg 06/30/21 16:01 Ondansetron 4 Mg/2 Ml Inj IV Q8H PRN Nausea And Vomiting Promethazine HCl 25 mg 06/30/21 16:01 Promethazine 25 Mg Rect Supp MS Q6H PRN Nausea And Vomiting Sodium Chloride 10 ml 06/30/21 16:01 07/02/21 21:42 Sodium Chloride 0.9% 10 Ml Flush Syringe IV 10 ml PRN PRN Administration LINE FLUSH
--- NOTE | 2021-07-04 08:28 | Consultation ---
History of Present Illness Consult date: 07/04/21 Reason for Consult: Found unresponsive History of present illness: He seemed out of it History of present illness: 65 YO Male with No PMH presents ED for evaluation. Patient is confused and lethargic and is unable provide history. Patient history taken EMS staff, ED staff, as well as hotel staff. Hotel staff report "he seemed out of it". Patient was found down and unresponsive in the parking lot of his room by hotel staff at a local extended stay hotel where the patient currently resides. EMS was notified and upon arrival the patient was found to have a neurologic deficit. A code stroke was called and the patient was transported to [facility] for further care and evaluation of the aforementioned symptoms. The patient was seen and evaluated in the emergency department. All lab and imaging studies reviewed. Patient found to have evidence of a left MCA stroke complicated by hemiparesis, dysarthria, and dysphagia. Patient found to be outside therapeutic window for TPA. Patient admitted to medical floor and initiated on CVA protocol. No reports of fever, chills, chest pain, palpitation, productive co ugh, skin rash, trauma, recent contact, or known exposure to COVID-19. No prior admission for review. No medication listed at time of admission for reconciliation. Advanced care planning conducted in ED. Patient is lethargic, evaluation but has a positive gag reflex and is able to protect his airway without difficulty. today he is alert inteactive with speech impairment CT brain is noted as well as CTA brain and neck MRI brain findings is consistent with left MCA inferior division CVA Past History Past Medical History: No medical history, other (Unable to obtain) Past Surgical History: No surgical history, Other (Unable to obtain) Social history: single. denies: smoking, alcohol abuse, prescription drug abuse Family history: no significant family history, other (Unable to obtain) Medications and Allergies Allergies Allergy/AdvReac Type Severity Reaction Status Date / Time Penicillins Allergy Hives Verified 06/30/21 13:15 Review of Systems ROS unobtainable: due to mental status Exam - Constitutional Vitals: Temp Pulse Resp BP Pulse Ox 98.0 F 73 22 209/127 96 06/30/21 12:56 06/30/21 14:45 06/30/21 13:16 06/30/21 14:45 06/30/21 13:16 General appearance: Present: mild distress - EENT Eyes: Present: PERRL ENT: hearing decreased - Neck Neck: Present: supple, normal ROM - Respiratory Respiratory effort: normal Respiratory: bilateral: CTA - Cardiovascular Heart Sounds: Present: S1 & S2. Absent: rub, click - Extremities Extremities: pulses symmetrical, No edema Peripheral Pulses: within normal limits - Abdominal General gastrointestinal: Present: soft, non-tender, non-distended, normal bowel sounds Male genitourinary: Present: normal - Integumentary Integumentary: Present: clear, dry - Musculoskeletal Musculoskeletal: generalized weakness - Psychiatric Psychiatric: no appropriate mood/affect, no intact judgment & insight, no memory intact - Neurologic Neurologic: no CNII-XII intact, focal deficits, no moves all extremities, no gait normal HEART Score - HEART Score Troponin: Troponin T < 0.010 ng/mL (0.00-0.029) 06/30/21 13:11 Results - Labs CBC & Chem 7: 06/30/21 13:11 06/30/21 13:11 Labs: Abnormal lab results 06/30/21 06/30/21 06/30/21 Range/Units 13:11 13:11 13:11 RBC 5.75 H (3.65-5.03) M/mm3 Hgb 16.2 H (11.8-15.2) gm/dl Hct 47.4 H (35.5-45.6) % MCV 82 L (84-94) fl Lymph % (Auto) 8.2 L (13.4-35.0) % Lymph # (Auto) 0.7 L (1.2-5.4) K/mm3 Seg Neutrophils % 86.0 H (40.0-70.0) % APTT 24.1 L (24.2-36.6) Sec. Glucose (75-100) mg/dL Total Bilirubin (0.1-1.2) mg/dL Total Creatine Kinase 174 H (55-170) units/L 06/30/21 Range/Units 13:11 RBC (3.65-5.03) M/mm3 Hgb (11.8-15.2) gm/dl Hct (35.5-45.6) % MCV (84-94) fl Lymph % (Auto) (13.4-35.0) % Lymph # (Auto) (1.2-5.4) K/mm3 Seg Neutrophils % (40.0-70.0) % APTT (24.2-36.6) Sec. Glucose 101 H (75-100) mg/dL Total Bilirubin 1.40 H (0.1-1.2) mg/dL Total Creatine Kinase (55-170) units/L Past History Past Medical History: No medical history, other (Unable to obtain) Past Surgical History: No surgical history, Other (Unable to obtain) Social history: single. denies: smoking, alcohol abuse, prescription drug abuse Family history: no significant family history, other (Unable to obtain) Medications and Allergies Allergies Allergy/AdvReac Type Severity Reaction Status Date / Time Penicillins Allergy Hives Verified 06/30/21 13:15 Home Medications Medication Instructions Recorded Confirmed Last Taken Type No Known Home Medications [No 07/01/21 07/01/21 Unknown History Reported Home Medications] Active Meds: Active Medications Acetaminophen (Acetaminophen 325 Mg Tab) 650 mg PO Q4H PRN PRN Reason: Pain, Mild (1-3) Aspirin (Aspirin 325 Mg Tab) 325 mg PO QDAY [facility] Last Admin: 07/03/21 09:35 Dose: 325 mg Atorvastatin Calcium (Atorvastatin 40 Mg Tab) 40 mg PO QHS SIVA Last Admin: 07/03/21 22:08 Dose: 40 mg Bisacodyl (Bisacodyl 10 Mg Rect Supp) 10 mg PA QDAY PRN PRN Reason: Constipation Hydralazine HCl (Hydralazine 20 Mg/1 Ml Inj) 10 mg IV Q4HR PRN PRN Reason: Hypertension Last Admin: 07/03/21 22:11 Dose: 10 mg Hydromorphone HCl (Hydromorphone 1 Mg/1 Ml Inj) 0.5 mg IV Q23H PRN PRN Reason: Pain , Severe (7-10) Magnesium Hydroxide (Magnesium Hydroxide (Mom) Oral Liqd Udc) 30 ml PO Q4H PRN PRN Reason: Constipation Metoclopramide HCl (Metoclopramide 10 Mg Tab) 10 mg PO Q6H PRN PRN Reason: Nausea And Vomiting Morphine Sulfate (Morphine 2 Mg/1 Ml Inj) 1 mg IV Q8H PRN PRN Reason: Pain, Moderate (4-6) Nifedipine (Nifedipine Xl 60 Mg Tab) 60 mg PO Q12HR [facility] Last Admin: 07/03/21 22:08 Dose: 60 mg Ondansetron HCl (Ondansetron 4 Mg/2 Ml Inj) 4 mg IV Q8H PRN PRN Reason: Nausea And Vomiting Promethazine HCl (Promethazine 25 Mg Rect Supp) 25 mg PA Q6H PRN PRN Reason: Nausea And Vomiting Sodium Chloride (Sodium Chloride 0.9% 10 Ml Flush Syringe) 10 ml IV PRN PRN PRN Reason: LINE FLUSH Last Admin: 07/02/21 21:42 Dose: 10 ml Physical Examination - Vital Signs Vital Signs: Vital Signs Pulse Resp Pulse Ox 89 22 94 06/30/21 12:43 06/30/21 12:43 06/30/21 12:43 - Constitutional General appearance: uncomfortable - EENT EENT: Present: PERRL, mucous membranes moist - Respiratory Respiratory: Present: lungs clear, rhonchi - Cardiovascular Cardiovascular: Present: regular rate, normal S1, normal S2 Extremities: Present: no peripheral edema bilatateraly, no clubbing, cyanosis - Gastrointestinal Gastrointestinal: Present: normoactive bowel sounds - Integumentary Integumentary: Present: normal - Neurologic Cranial nerve examination: PERRL, EOMI, facial droop Speech examination: motor aphasia Sensorimotor examination: intact Detailed motor examination: grossly full strength in, other (right upper 2/5 right lower 3+/5 , reflexes are suppressd , ) - Level of Consciousness 1a. Level of Consciousness: alert/keenly responsive - LOC Questions 1b. LOC Questions: answers both correctly - LOC Command 1c. LOC Commands: performs tasks correctly - Best Gaze 2. Best Gaze: normal - Visual 3. Visual: no visual loss - Facial Palsy 4. Facial Palsy: minor paralysis - Motor Arm 5a. Motor Arm Left: no drift 5b. Motor Arm Right: some gravity effort - Motor Leg 6a. Motor Leg Left: no drift 6b. Motor Leg Right: drift - Limb Ataxia 7. Limb Ataxia: absent - Sensory 8. Sensory: normal - Best Language 9. Best Language: mild/moderate aphasia - Dysarthria 10. Dysarthria: normal - Extinction and Inattention 11. Extinction/Inattention: no abnormality - Scoring Total Score: 5 Stroke Severity: Moderate Stroke Results - Laboratory Findings CBC and BMP: 07/03/21 04:16 07/03/21 04:16 Abnormal Lab Findings: Abnormal Labs 06/30/21 06/30/21 06/30/21 13:11 13:11 13:11 RBC 5.75 H Hgb 16.2 H Hct 47.4 H MCV 82 L MCH Lymph % (Auto) 8.2 L [place] % (Auto) Lymph # (Auto) 0.7 L [place] # (Auto) Seg Neutrophils % 86.0 H APTT 24.1 L Potassium Chloride BUN Glucose POC Glucose Total Bilirubin Total Creatine Kinase 174 H 06/30/21 07/02/21 07/02/21 13:11 04:39 04:39 RBC 5.89 H Hgb 15.7 H Hct 48.8 H MCV 83 L MCH 27 L Lymph % (Auto) [place] % (Auto) 9.9 H Lymph # (Auto) [place] # (Auto) 0.9 H Seg Neutrophils % 73.3 H APTT Potassium 3.5 L D Chloride 107.1 H BUN Glucose 101 H 114 H POC Glucose Total Bilirubin 1.40 H Total Creatine Kinase 07/02/21 07/03/21 07/03/21 21:15 04:16 04:16 RBC 6.03 H Hgb 16.1 H Hct 50.2 H MCV 83 L MCH 27 L Lymph % (Auto) [place] % (Auto) 10.6 H Lymph # (Auto) [place] # (Auto) 0.9 H Seg Neutrophils % APTT Potassium 3.5 L Chloride BUN 21 H Glucose 115 H POC Glucose 107 H Total Bilirubin Total Creatine Kinase 07/03/21 07/03/21 07/03/21 07:59 11:12 16:45 RBC Hgb Hct MCV MCH Lymph % (Auto) [place] % (Auto) Lymph # (Auto) [place] # (Auto) Seg Neutrophils % APTT Potassium Chloride BUN Glucose POC Glucose 125 H 127 H 118 H Total Bilirubin Total Creatine Kinase 07/03/21 21:56 RBC Hgb Hct MCV MCH Lymph % (Auto) [place] % (Auto) Lymph # (Auto) [place] # (Auto) Seg Neutrophils % APTT Potassium Chloride BUN Glucose POC Glucose 115 H Total Bilirubin Total Creatine Kinase Assessment and Plan Assessment and Plan 65 YO Male with No PMH presents ED for evaluation. Patient is confused and lethargic and is unable provide history. Patient history taken EMS staff, ED staff, as well as hotel staff. Hotel staff report "he seemed out of it". Patient was found down and unresponsive in the parking lot of his room by hotel staff at a local extended stay hotel where the patient currently resides. EMS was notified and upon arrival the patient was found to have a neurologic deficit. A code stroke was called and the patient was transported to [facility] for further care and evaluation of the aforementioned symptoms. - Patient Problems # New onset speech impairment and right side weakness -r/o Acute CVA (cerebrovascular accident) -Ct brain is suggestive of left MCA infarct -CTA brain and neck is remarkable for left M2 stenosis -MRI findings is suggestive of left subacute inferior MCA infarct -he is on ASA and Lipitor -LDL#104 -Echo is with EF#55-60% negative bubble no sign of AF -PT and ST evaluate # Accelerated hypertension Monitor blood pressure every shift, continue medical management, permissive hypertension overnight. # Right hemiparesis -Physical therapy consulted, supportive care, continue medical management. # Dysphagia Speech therapy consulted, dysphagia diet as per speech therapy recommendations. # DVT prophylaxis -SCDs bilateral lower extremities while in bed
--- NOTE | 2021-07-04 08:31 | Electrocardiograph Report ---
[facility] Test Date: 2021-07-01 Test Time: 09:10:29 Pat Name: KANDACE PATEL Department: Room: A370 1 Gender: M Manager Hiv: MARGIE : 1955 Requested By: CAS SEPULVEDA Order Number: [id number] Reading MD: Liseth Keller Measurements Intervals [place] Rate: 73 P: 6 TX: 131 QRS: -8 QRSD: 86 T: 4 QT: 417 QTc: 452 Interpretive Statements Sinus rhythm Atrial premature complexes in couplets T wave abnormality, consider anterior ischemia No previous ECG available for comparison Electronically Signed On 07-04-2021 8:30:56 EDT by Liseth Keller
--- NOTE | 2021-07-04 08:37 | Electrocardiograph Report ---
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
--- NOTE | 2021-07-04 09:13 | Electrocardiograph Report ---
[facility] Test Date: 2021-07-03 Test Time: 11:18:19 Pat Name: KANDACE PATEL Department: Room: A370 1 Gender: M Diet Aide: KHALIF : 1955 Requested By: CAS SEPULVEDA Order Number: [id number] Reading MD: Liseth Keller Measurements Intervals [place] Rate: 142 P: 48 [place]: 134 QRS: -5 QRSD: 80 T: 197 QT: 287 QTc: 443 Interpretive Statements Sinus tachycardia Multiple premature complexes, vent & supraven Nonspecific T wave abnormality Compared to ECG 07/01/2021 22:01:10 Sinus rate has increased Electronically Signed On 07-04-2021 9:13:13 EDT by Liseth Keller
[2021-07-04] MEDS: ASPIRIN 325 MG TAB PO SCH (10:23)
[2021-07-04] MEDS: NIFEdipine XL 60 MG TAB PO SCH ×2 (10:23→21:38)
[2021-07-04 10:25] LABS: Chol/HDL Ratio 2.64 %
--- NOTE | 2021-07-04 10:32 | Magnetic Resonance Report ---
NONENHANCED MR SCAN OF THE BRAIN: INDICATION / CLINICAL INFORMATION: CVA, LT SIDED WEAKNESS. TECHNIQUE: Multiplanar, multisequence MR images of the brain obtained. COMPARISON: CT scan of the head from 06/30/2021 FINDINGS: BRAIN / INTRACRANIAL CONTENTS: Abnormal MRI scan Subacute infarction seen in the left middle cerebral artery inferior division territory; this infarct ion more than 12 hours old (increased T2 signal intensity) but less than 5 days old (low ADC). In the gradient echo images, no hemorrhagic changes. In addition, subtle changes are seen in the left anter ior insular; unable to determine the age Chronic changes in the shani due to chronic small vessel disease; no focal lesion in the cerebellar he mispheres; mild volume loss In the cerebral hemispheres, chronic changes in the basal ganglia bilaterally; white matter lesions ( [place] 1) due to chronic small vessel disease CRANIOCERVICAL JUNCTION: No significant abnormality. VASCULAR FLOW-VOIDS: No significant abnormality. ORBITS: No significant abnormality of visualized orbits. SINUSES / MASTOIDS: No significant abnormality of visualized sinuses and mastoid air cells. ADDITIONAL FINDINGS: None. IMPRESSION: Nonhemorrhagic subacute infarction in the left middle cerebral artery inferior division territory: No mass effect over the left occipital horn Signer Name: Sarah Lorenzo MD Signed: 07/04/2021 10:27 AM Workstation Name: [id number]
[2021-07-05] MEDS ORDERED: dilTIAZem 25 MG/5 ML INJ IV ONE (06:53)
[2021-07-05] MEDS: LOSARTAN 50 MG TAB PO SCH ×2 (08:43→16:16)
[2021-07-05] MEDS: NIFEdipine XL 60 MG TAB PO SCH ×3 (08:44→23:14)
[2021-07-05] MEDS: ASPIRIN 325 MG TAB PO SCH ×2 (08:44→14:13)
--- NOTE | 2021-07-05 11:59 | Progress Note ---
Assessment and Plan Assessment and Plan 65 YO Male with No PMH presents ED for evaluation. Patient is confused and lethargic and is unable provide history. Patient history taken EMS staff, ED staff, as well as hotel staff. Hotel staff report "he seemed out of it". Patient was found down and unresponsive in the parking lot of his room by hotel staff at a local extended stay hotel where the patient currently resides. EMS was notified and upon arrival the patient was found to have a neurologic deficit. A code stroke was called and the patient was transported to [facility] for further care and evaluation of the aforementioned symptoms. - Patient Problems # New onset speech impairment and right side weakness -r/o Acute CVA (cerebrovascular accident) -Ct brain is suggestive of left MCA infarct -CTA brain and neck is remarkable for left M2 stenosis -MRI findings is suggestive of left subacute inferior MCA infarct -he is on ASA and Lipitor -LDL#104 -Echo is with EF#55-60% negative bubble no sign of AF -PT and ST evaluate # Accelerated hypertension Monitor blood pressure every shift, continue medical management, permissive hypertension overnight. # Right hemiparesis -strength 3/5 right side -need PT /ST and rehabilitation -Physical therapy consulted, supportive care, continue medical management. # Dysphagia Speech therapy consulted, dysphagia diet as per speech therapy recommendations. # DVT prophylaxis -SCDs bilateral lower extremities while in bed will follow as needed Subjective Date of service: 07/05/21 Interval history: stil with right side weakness speech is better MRI brain is noted Objective - Vital Sign Vital Signs - 12hr 07/05/21 07/05/21 07/05/21 04:51 05:15 06:55 Temperature 98.2 F Pulse Rate 187 H 94 H 145 H Respiratory 16 Rate Blood Pressure 194/174 Blood Pressure 123/99 [Left] O2 Sat by Pulse 96 Oximetry 07/05/21 08:08 Temperature Pulse Rate Respiratory Rate Blood Pressure Blood Pressure [Left] O2 Sat by Pulse 98 Oximetry - General Apperance Constitutional: comfortable - EENT EENT: PERRL, mucous membranes moist - Respiratory Respiratory: lungs clear, rhonchi - Cardiovascular Cardiovascular: regular rate, normal S1, normal S2 Extremities: no peripheral edema bilat, no clubbing, cyanosis - Gastrointestinal Gastrointestinal: normoactive bowel sounds - Integumentary Integumentary: normal - Neurologic Cranial nerve examination: PERRL, EOMI, facial droop Speech examination: intact Detailed motor examination: other (right upper is 2/5 right lower 3/5 planter is down going ) - Laboratory Findings CBC and BMP: 07/03/21 04:16 07/03/21 04:16 Abnormal Lab Findings: Abnormal Labs 06/30/21 06/30/21 06/30/21 13:11 13:11 13:11 RBC 5.75 H Hgb 16.2 H Hct 47.4 H MCV 82 L MCH Lymph % (Auto) 8.2 L [place] % (Auto) Lymph # (Auto) 0.7 L [place] # (Auto) Seg Neutrophils % 86.0 H APTT 24.1 L Potassium Chloride BUN Glucose POC Glucose Total Bilirubin Total Creatine Kinase 174 H Cholesterol HDL Cholesterol 06/30/21 07/02/21 07/02/21 13:11 04:39 04:39 RBC 5.89 H Hgb 15.7 H Hct 48.8 H MCV 83 L MCH 27 L Lymph % (Auto) [place] % (Auto) 9.9 H Lymph # (Auto) [place] # (Auto) 0.9 H Seg Neutrophils % 73.3 H APTT Potassium 3.5 L D Chloride 107.1 H BUN Glucose 101 H 114 H POC Glucose Total Bilirubin 1.40 H Total Creatine Kinase Cholesterol HDL Cholesterol 07/02/21 07/03/21 07/03/21 21:15 04:16 04:16 RBC 6.03 H Hgb 16.1 H Hct 50.2 H MCV 83 L MCH 27 L Lymph % (Auto) [place] % (Auto) 10.6 H Lymph # (Auto) [place] # (Auto) 0.9 H Seg Neutrophils % APTT Potassium 3.5 L Chloride BUN 21 H Glucose 115 H POC Glucose 107 H Total Bilirubin Total Creatine Kinase Cholesterol HDL Cholesterol 07/03/21 07/03/21 07/03/21 04:58 07:59 11:12 RBC Hgb Hct MCV MCH Lymph % (Auto) [place] % (Auto) Lymph # (Auto) [place] # (Auto) Seg Neutrophils % APTT Potassium Chloride BUN Glucose POC Glucose 125 H 127 H Total Bilirubin Total Creatine Kinase Cholesterol 201 H HDL Cholesterol 76 H 07/03/21 07/03/21 16:45 21:56 RBC Hgb Hct MCV MCH Lymph % (Auto) [place] % (Auto) Lymph # (Auto) [place] # (Auto) Seg Neutrophils % APTT Potassium Chloride BUN Glucose POC Glucose 118 H 115 H Total Bilirubin Total Creatine Kinase Cholesterol HDL Cholesterol
--- NOTE | 2021-07-05 12:12 | Consultation ---
History of Present Illness Consult date: 07/05/21 Consult reason: arrhythmia, tachycardia History of present illness: The patient is a 65-year-old man with a history of hypertension, for which he admits noncompliance with medical therapy. Admitted to this hospital 5 days ago with an acute CVA manifested by speech impairment and a right hemiparesis. At the time of presentation, his blood pressure was over 200 systolic. He is under the management of internal medicine and neurology. Blood pressure control has improved on nifedipine XL. Cardiology consultation is requested for the finding of intermittent sustained bursts of narrow complex tachycardia with heart rates as high as 190s. The patient is otherwise in stable sinus rhythm. His twelve-lead EKG shows left ventricle hypertrophy with nonspecific anterior T wave abnormalities, likely repolarization abnormalities of LVH. Echocardiogram done on this presentation showed well-preserved left ventricular systolic ejection fraction of 55%, mild to moderate concentric left ventricle hypertrophy, mild aortic regurgitation, and borderline dilatation of the ascending aorta measuring 4.02 cm. Notably, a contrast saline bubble study was negative. I have reviewed the telemetry strips which show sustained, bursts of rapid atrial fibrillation which spontaneously resolved to sinus rhythm. The patient reports no known prior cardiac history, and reports no symptoms of palpitations. Past History Past Medical History: hypertension Past Surgical History: No surgical history, Other (Unable to obtain) Social history: single. denies: smoking, alcohol abuse, prescription drug abuse Family history: no significant family history, other (Unable to obtain) Medications and Allergies Allergies Allergy/AdvReac Type Severity Reaction Status Date / Time Penicillins Allergy Hives Verified 06/30/21 13:15 Home Medications Medication Instructions Recorded Confirmed Last Taken Type No Known Home Medications [No 07/01/21 07/01/21 Unknown History Reported Home Medications] Active Meds: Active Medications Acetaminophen (Acetaminophen 325 Mg Tab) 650 mg PO Q4H PRN PRN Reason: Pain, Mild (1-3) Aspirin (Aspirin 325 Mg Tab) 325 mg PO QDAY [facility] Last Admin: 07/05/21 08:44 Dose: 325 mg Atorvastatin Calcium (Atorvastatin 40 Mg Tab) 40 mg PO QHS [facility] Last Admin: 07/04/21 21:19 Dose: 40 mg Bisacodyl (Bisacodyl 10 Mg Rect Supp) 10 mg [place] QDAY PRN PRN Reason: Constipation Hydralazine HCl (Hydralazine 20 Mg/1 Ml Inj) 10 mg IV Q4HR PRN PRN Reason: Hypertension Last Admin: 07/03/21 22:11 Dose: 10 mg Hydromorphone HCl (Hydromorphone 1 Mg/1 Ml Inj) 0.5 mg IV Q23H PRN PRN Reason: Pain , Severe (7-10) Losartan Potassium (Losartan 50 Mg Tab) 50 mg PO QDAY [facility] Last Admin: 07/05/21 08:43 Dose: 50 mg Magnesium Hydroxide (Magnesium Hydroxide (Mom) Oral Liqd Udc) 30 ml PO Q4H PRN PRN Reason: Constipation Metoclopramide HCl (Metoclopramide 10 Mg Tab) 10 mg PO Q6H PRN PRN Reason: Nausea And Vomiting Metoprolol Tartrate (Metoprolol Tartrate 50 Mg Tab) 50 mg PO Q8H SIVA Morphine Sulfate (Morphine 2 Mg/1 Ml Inj) 1 mg IV Q8H PRN PRN Reason: Pain, Moderate (4-6) Nifedipine (Nifedipine Xl 60 Mg Tab) 60 mg PO Q12HR [facility] Last Admin: 07/05/21 08:44 Dose: 60 mg Ondansetron HCl (Ondansetron 4 Mg/2 Ml Inj) 4 mg IV Q8H PRN PRN Reason: Nausea And Vomiting Promethazine HCl (Promethazine 25 Mg Rect Supp) 25 mg [place] Q6H PRN PRN Reason: Nausea And Vomiting Sodium Chloride (Sodium Chloride 0.9% 10 Ml Flush Syringe) 10 ml IV PRN PRN PRN Reason: LINE FLUSH Last Admin: 07/02/21 21:42 Dose: 10 ml Review of Systems Cardiovascular: rapid/irregular heart beat, no chest pain, no orthopnea, no edema, no syncope, no lightheadedness, no shortness of breath Physical Examination Vital Signs Pulse Resp Pulse Ox 89 22 94 06/30/21 12:43 06/30/21 12:43 06/30/21 12:43 General appearance: no acute distress HEENT: Positive: PERRL Neck: Positive: neck supple Cardiac: Positive: Reg Rate and Rhythm Lungs: Positive: Decreased Breath Sounds Neuro: Positive: Grossly Intact Abdomen: Positive: Soft Male genitourinary: Positive: deferred Skin: Positive: Clear Extremities: Absent: edema Results 07/03/21 04:16 07/03/21 04:16 EKG interpretations - Telemetry EKG Rhythm: Sinus Rhythm (With left ventricle hypertrophy and revascularization abnormalities of LVH) Assessment and Plan - Patient Problems (1) Paroxysmal atrial fibrillation Current Visit: Yes Status: Acute Plan to address problem: 65-year-old man with history of severe uncontrolled hypertension, admitted with acute CVA. On residential monitor, he has intermittent sustained bursts of rapid atrial fibrillation. Denies any prior history of known atrial fibrillation. LV function is well preserved on echocardiogram, ejection fraction 55%. Contrast bubble study is negative. We will start metoprolol 50 mg every 8 hours for atrial fibrillation. Patient will need long-term oral anticoagulation with a direct oral antico agulant or warfarin. Timing of initiation of oral anticoagulation will be deferred to neurology.
[2021-07-05] MEDS: METOPROLOL TARTRATE 50 MG TAB PO SCH ×2 (14:11→21:24)
[2021-07-05] MEDS: HEPARIN 5,000 UNIT/1 ML VIAL SUB-Q SCH ×2 (14:12→21:25)
--- NOTE | 2021-07-05 17:31 | Progress Note ---
Assessment and Plan Assessment and plan: 65-year-old male with no significant past medical history presented through the emergency department with lethargy and altered mentation. Patient was evaluated through the emergency department and found to have on CTA a left MCA stroke complicated by hemiparesis, dysarthria, and dysphagia. Patient found to be outside therapeutic window for TPA. Patient admitted to medical floor and initiated on CVA protocol. #Acute left MCA CVA (new onset) #Right hemiparesis -CTA brain and neck is remarkable for left M2 stenosis -MRI findings is suggestive of left subacute inferior MCA infarct -Continue aspirin 325 mg daily and Lipitor 40 mg daily TTE revealing EF 55-60% and unremarkable for PFO or atrial fibrillation PT/OT consulted; appreciate recs. Initially recommended acute rehab; however, it was declined. Currently applying for subacute rehab status. #Uncontrolled hypertension -Continue nifedipine #Paroxysmal atrial fibrillation (new onset) EKG revealing SVT as high as 190s Cardiology consulted; appreciate recs. Starting p.o. metoprolol tartrate 50 mg every 8 hours for rate control. Recommended anticoagulation to be started for stroke prevention; however, the timing of initiation will be deferred to neurolo gy #Oropharyngeal dysphagia #Dysarthria Speech therapy consulted; appreciate recs. Continue dysphagia diet 07/01/2021. Follow-up echocardiogram. Await neurology consultation. Await PT/OT/ST evaluations. Continue secondary prevention with aspirin and Lipitor. 07/02/2021. Echocardiogram reveals LVEF of 55-60% and right ventricular systolic function normal. No PFO. Carotid ultrasound found to be negative. Await physical therapy recommendations. Speech therapy reports that patient demonstrates delayed oral transit time with a swallow reflex delay with pureed consistencies. Patient requires tactile stimulation to close his mouth for chewing as he fails to follow commands. With regular liquids, swallow reflex is timely with good laryngeal elevation. No evidence of aspiration was identified. Continue with dysphagia pured diet. Continue aspirin and Lipitor. Await neurology consultation 07/03/2021. Physical therapy recommends acute rehab. Continue aspirin and Lipitor. Await neurology consultation 07/04/2021. Physical therapy recommends acute rehab. Continue aspirin and Lipitor for secondary prevention. Await neurology recommendations. 07/05/2021. Patient found to have SVT and paroxysmal atrial fibrillation. Cardi ology consulted. Patient being started on metoprolol tartrate 50 mg every 8 hours for rate control. Anticoagulation initiation is being deferred to neurology. #Advanced care planning -Disease education conducted, care plan discussed, diagnoses discussed, prognosis discussed, and patient acknowledges understanding with care plan -Time: +30 min Disposition Plan: Continue medical management Total Time Spent with Patient (Minutes): 30 min History Interval history: No acute events overnight. Hospitalist Physical - Constitutional Vitals: Temp Pulse Resp BP Pulse Ox 98.2 F 145 H 16 123/99 98 07/05/21 04:51 07/05/21 06:55 07/05/21 04:51 07/05/21 05:15 07/05/21 08:08 General appearance: Present: no acute distress, well-nourished - EENT Eyes: Present: PERRL, EOM intact ENT: hearing intact, clear oral mucosa - Neck Neck: Present: supple, normal ROM - Respiratory Respiratory effort: normal Respiratory: bilateral: CTA - Cardiovascular Rhythm: irregularly irregular Heart Sounds: Present: S1 & S2 - Extremities Extremities: no ischemia, pulses intact, pulses symmetrical, No edema, normal temperature, normal color Peripheral Pulses: within normal limits - Abdominal General gastrointestinal: soft, non-tender, non-distended, normal bowel sounds - Integumentary Integumentary: Present: clear, warm, dry - Psychiatric Psychiatric: cooperative - Neurologic Neurologic: focal deficits (Right-sided weakness with 3/5 strength of bilateral upper and lower extremities on right side) - Allied Health Allied health notes reviewed: nursing HEART Score - HEART Score Troponin: Troponin T < 0.010 ng/mL (0.00-0.029) 07/01/21 23:26 Results - Labs CBC & Chem 7: 07/03/21 04:16 07/03/21 04:16 Labs: Laboratory Last Values WBC 8.3 K/mm3 (4.5-11.0) 07/03/21 04:16 RBC 6.03 M/mm3 (3.65-5.03) H 07/03/21 04:16 Hgb 16.1 gm/dl (11.8-15.2) H 07/03/21 04:16 Hct 50.2 % (35.5-45.6) H 07/03/21 04:16 MCV 83 fl (84-94) L 07/03/21 04:16 MCH 27 pg (28-32) L 07/03/21 04:16 MCHC 32 % (32-34) 07/03/21 04:16 RDW 13.9 % (13.2-15.2) 07/03/21 04:16 Plt Count 238 K/mm3 (140-440) 07/03/21 04:16 Lymph % (Auto) 18.3 % (13.4-35.0) 07/03/21 04:16 [place] % (Auto) 10.6 % (0.0-7.3) H 07/03/21 04:16 Eos % (Auto) 0.8 % (0.0-4.3) 07/03/21 04:16 Baso % (Auto) 0.4 % (0.0-1.8) 07/03/21 04:16 Lymph # (Auto) 1.5 K/mm3 (1.2-5.4) 07/03/21 04:16 [place] # (Auto) 0.9 K/mm3 (0.0-0.8) H 07/03/21 04:16 Eos # (Auto) 0.1 K/mm3 (0.0-0.4) 07/03/21 04:16 Baso # (Auto) 0.0 K/mm3 (0.0-0.1) 07/03/21 04:16 Seg Neutrophils % 69.9 % (40.0-70.0) 07/03/21 04:16 Seg Neutrophils # 5.8 K/mm3 (1.8-7.7) 07/03/21 04:16 PT 12.9 Sec. (12.2-14.9) 06/30/21 13:11 INR 0.88 (0.87-1.13) 06/30/21 13:11 APTT 24.1 Sec. (24.2-36.6) L 06/30/21 13:11 Thrombin Time 17.5 Sec. (15.1-19.6) 06/30/21 13:11 Sodium 143 mmol/L (137-145) 07/03/21 04:16 Potassium 3.5 mmol/L (3.6-5.0) L 07/03/21 04:16 Chloride 106.5 mmol/L (98-107) 07/03/21 04:16 Carbon Dioxide 23 mmol/L (22-30) 07/03/21 04:16 Anion Gap 17 mmol/L 07/03/21 04:16 BUN 21 mg/dL (9-20) H 07/03/21 04:16 Creatinine 1.1 mg/dL (0.8-1.3) 07/03/21 04:16 Estimated GFR > 60 ml/min 07/03/21 04:16 BUN/Creatinine Ratio 19 % 07/03/21 04:16 Glucose 115 mg/dL (75-100) H 07/03/21 04:16 POC Glucose 115 mg/dL (70-105) H 07/03/21 21:56 Calcium 9.7 mg/dL (8.4-10.2) 07/03/21 04:16 Magnesium 2.00 mg/dL (1.7-2.3) 07/01/21 23:26 Total Bilirubin 1.40 mg/dL (0.1-1.2) H 06/30/21 13:11 AST 20 units/L (5-40) 06/30/21 13:11 ALT 18 units/L (7-56) 06/30/21 13:11 Alkaline Phosphatase 69 units/L (35-129) 06/30/21 13:11 Total Creatine Kinase 174 units/L (55-170) H 06/30/21 13:11 CK-MB (CK-2) 3.3 ng/mL (0.0-4.0) 06/30/21 13:11 CK-MB (CK-2) Rel Index 1.8 (0-4) 06/30/21 13:11 Troponin T < 0.010 ng/mL (0.00-0.029) 07/01/21 23:26 Total Protein 7.3 g/dL (6.3-8.2) 06/30/21 13:11 Albumin 4.5 g/dL (3.9-5) 06/30/21 13:11 Albumin/Globulin Ratio 1.6 % 06/30/21 13:11 Triglycerides 106 mg/dL (2-149) 07/03/21 04:58 Cholesterol 201 mg/dL (50-199) H 07/03/21 04:58 LDL Cholesterol Direct 104 mg/dL (50-130) 07/03/21 04:58 HDL Cholesterol 76 mg/dL (40-59) H 07/03/21 04:58 Cholesterol/HDL Ratio 2.64 % 07/03/21 04:58 [place]/IV: Voiding Method Condom Catheter Active Medications - Current Medications Current Medications: Generic Name Dose Route Start Last Admin Trade Name Freq PRN Reason Stop Dose Admin Acetaminophen 650 mg 06/30/21 16:01 Acetaminophen 325 Mg Tab PO Q4H PRN Pain, Mild (1-3) Aspirin 325 mg 07/01/21 10:00 07/05/21 14:13 Aspirin 325 Mg Tab PO 325 mg QDAY SIVA Administration Atorvastatin Calcium 40 mg 06/30/21 22:00 07/04/21 21:19 Atorvastatin 40 Mg Tab PO 40 mg QHS SIVA Administration Bisacodyl 10 mg 06/30/21 16:01 Bisacodyl 10 Mg Rect Supp [place] QDAY PRN Constipation Heparin Sodium (Porcine) 5,000 unit 07/05/21 12:15 07/05/21 14:12 Heparin 5,000 Unit/1 Ml Vial SUB-Q 5,000 unit Q12HR SIVA Administration Hydralazine HCl 10 mg 07/01/21 10:21 07/03/21 22:11 Hydralazine 20 Mg/1 Ml Inj IV 10 mg Q4HR PRN Administration Hypertension Hydromorphone HCl 0.5 mg 06/30/21 16:01 Hydromorphone 1 Mg/1 Ml Inj IV Q23H PRN Pain , Severe (7-10) Losartan Potassium 50 mg 07/05/21 10:00 07/05/21 16:16 Losartan 50 Mg Tab PO Not Given QDAY [facility] Magnesium Hydroxide 30 ml 06/30/21 16:01 Magnesium Hydroxide (Mom) Oral Liqd Udc PO Q4H PRN Constipation Metoclopramide HCl 10 mg 06/30/21 16:01 Metoclopramide 10 Mg Tab PO Q6H PRN Nausea And Vomiting Metoprolol Tartrate 50 mg 07/05/21 13:00 07/05/21 14:11 Metoprolol Tartrate 50 Mg Tab PO 50 mg Q8H SIVA Administration Morphine Sulfate 1 mg 06/30/21 16:01 Morphine 2 Mg/1 Ml Inj IV Q8H PRN Pain, Moderate (4-6) Nifedipine 60 mg 07/01/21 08:00 07/05/21 10:12 Nifedipine Xl 60 Mg Tab PO 60 mg Q12HR SIVA Administration Ondansetron HCl 4 mg 06/30/21 16:01 Ondansetron 4 Mg/2 Ml Inj IV Q8H PRN Nausea And Vomiting Promethazine HCl 25 mg 06/30/21 16:01 Promethazine 25 Mg Rect Supp [place] Q6H PRN Nausea And Vomiting Sodium Chloride 10 ml 06/30/21 16:01 07/02/21 21:42 Sodium Chloride 0.9% 10 Ml Flush Syringe IV 10 ml PRN PRN Administration LINE FLUSH
[2021-07-06] MEDS: METOPROLOL TARTRATE 50 MG TAB PO SCH ×3 (04:38→21:34)
[2021-07-06] MEDS: LOSARTAN 50 MG TAB PO SCH (10:13)
[2021-07-06] MEDS: HEPARIN 5,000 UNIT/1 ML VIAL SUB-Q SCH (10:13)
[2021-07-06] MEDS: NIFEdipine XL 60 MG TAB PO SCH ×2 (10:13→21:32)
[2021-07-06] MEDS: ASPIRIN 325 MG TAB PO SCH (10:13)
--- NOTE | 2021-07-06 11:04 | Progress Note ---
Assessment and Plan Assessment and Plan 65 YO Male with No PMH presents ED for evaluation. Patient is confused and lethargic and is unable provide history. Patient history taken EMS staff, ED staff, as well as hotel staff. Hotel staff report "he seemed out of it". Patient was found down and unresponsive in the parking lot of his room by hotel staff at a local extended stay hotel where the patient currently resides. EMS was notified and upon arrival the patient was found to have a neurologic deficit. A code stroke was called and the patient was transported to [facility] for further care and evaluation of the aforementioned symptoms. - Patient Problems # New onset speech impairment and right side weakness -r/o Acute CVA (cerebrovascular accident) -Ct brain is suggestive of left MCA infarct -CTA brain and neck is remarkable for left M2 stenosis -MRI findings is suggestive of left subacute inferior MCA infarct -he is on ASA and Lipitor -LDL#104 -Echo is with EF#55-60% negative bubble negative -PT and ST evaluate # New onset AF noted on monitor -cardiology evaluate -No objection for AC oral -follow up CT brain in 2 days -CT prn if change in mental or physical condition -need rehabilitation # Accelerated hypertension Monitor blood pressure every shift, continue medical management, permissive hypertension overnight. # Right hemiparesis -Physical therapy consulted, supportive care, continue medical management. # Dysphagia Speech therapy consulted, dysphagia diet as per speech therapy recommendations. # DVT prophylaxis -SCDs bilateral lower extremities while in bed Subjective Date of service: 07/06/21 Interval history: still with right side weakness speech is better MRI brain is noted Developed AF on monitor yesterday agree on AC follow up CT brain in 1-2 days or if change in exam status need rehabilitation Objective - Vital Sign Vital Signs - 12hr 07/05/21 07/06/21 07/06/21 23:01 01:48 04:32 Temperature Pulse Rate 58 L 88 Respiratory Rate Blood Pressure 118/85 Blood Pressure 109/82 [Left] O2 Sat by Pulse 90 Oximetry 07/06/21 07/06/21 07/06/21 04:35 04:38 10:13 Temperature 98.6 F Pulse Rate 77 77 Respiratory 18 Rate Blood Pressure 121/85 121/85 Blood Pressure 128/85 [Left] O2 Sat by Pulse Oximetry - General Apperance Constitutional: comfortable - EENT EENT: PERRL, mucous membranes moist - Respiratory Respiratory: lungs clear, rhonchi - Cardiovascular Cardiovascular: other (irregular) Extremities: no peripheral edema bilat, no clubbing, cyanosis - Gastrointestinal Gastrointestinal: normoactive bowel sounds - Integumentary Integumentary: normal - Neurologic Cranial nerve examination: PERRL, EOMI, facial droop Speech examination: other (slightly slurred,improved simce admission) Detailed motor examination: other (right upper1-2/5 right lower 3+/5 ,gait not done) - Laboratory Findings CBC and BMP: 07/03/21 04:16 07/03/21 04:16 Abnormal Lab Findings: Abnormal Labs 06/30/21 06/30/21 06/30/21 13:11 13:11 13:11 RBC 5.75 H Hgb 16.2 H Hct 47.4 H MCV 82 L MCH Lymph % (Auto) 8.2 L [place] % (Auto) Lymph # (Auto) 0.7 L [place] # (Auto) Seg Neutrophils % 86.0 H APTT 24.1 L Potassium Chloride BUN Glucose POC Glucose Total Bilirubin Total Creatine Kinase 174 H Cholesterol HDL Cholesterol 06/30/21 07/02/21 07/02/21 13:11 04:39 04:39 RBC 5.89 H Hgb 15.7 H Hct 48.8 H MCV 83 L MCH 27 L Lymph % (Auto) [place] % (Auto) 9.9 H Lymph # (Auto) [place] # (Auto) 0.9 H Seg Neutrophils % 73.3 H APTT Potassium 3.5 L D Chloride 107.1 H BUN Glucose 101 H 114 H POC Glucose Total Bilirubin 1.40 H Total Creatine Kinase Cholesterol HDL Cholesterol 07/02/21 07/03/21 07/03/21 21:15 04:16 04:16 RBC 6.03 H Hgb 16.1 H Hct 50.2 H MCV 83 L MCH 27 L Lymph % (Auto) [place] % (Auto) 10.6 H Lymph # (Auto) [place] # (Auto) 0.9 H Seg Neutrophils % APTT Potassium 3.5 L Chloride BUN 21 H Glucose 115 H POC Glucose 107 H Total Bilirubin Total Creatine Kinase Cholesterol HDL Cholesterol 07/03/21 07/03/21 07/03/21 04:58 07:59 11:12 RBC Hgb Hct MCV MCH Lymph % (Auto) [place] % (Auto) Lymph # (Auto) [place] # (Auto) Seg Neutrophils % APTT Potassium Chloride BUN Glucose POC Glucose 125 H 127 H Total Bilirubin Total Creatine Kinase Cholesterol 201 H HDL Cholesterol 76 H 07/03/21 07/03/21 16:45 21:56 RBC Hgb Hct MCV MCH Lymph % (Auto) [place] % (Auto) Lymph # (Auto) [place] # (Auto) Seg Neutrophils % APTT Potassium Chloride BUN Glucose POC Glucose 118 H 115 H Total Bilirubin Total Creatine Kinase Cholesterol HDL Cholesterol
[2021-07-06] MEDS ORDERED: ASPIRIN 325 MG TAB PO SCH (11:05)
--- NOTE | 2021-07-06 12:56 | Progress Note ---
Assessment and Plan - Patient Problems (1) Paroxysmal atrial fibrillation Current Visit: Yes Status: Acute Plan to address problem: 65-year-old man with history of severe uncontrolled hypertension, admitted with acute CVA. On evaluation advisor, he has intermittent sustained bursts of rapid atrial fibrillation. Denies any prior history of known atrial fibrillation. LV function is well preserved on echocardiogram, ejection fraction 55%. Contrast bubble study is negative. Continue metoprolol 50 mg every 8 hours for atrial fibrillation. Patient has been started on Eliquis 5 twice daily for long-term oral anticoagulation. Cardiac status is stable, we will sign off and follow on a as needed basis. Subjective Date of service: 07/06/21 Principal diagnosis: Acute CVA, paroxysmal atrial fibrillation Interval history: Patient is comfortable, no new cardiac complaints, on evaluation advisor, stable sinus rhythm. No further atrial fibrillation has been reported. Objective Vital Signs Temp Pulse Resp BP BP Pulse Ox 07/06/21 10:13 77 121/85 07/06/21 04:38 77 121/85 07/06/21 04:35 98.6 F 18 128/85 07/06/21 04:32 88 90 07/06/21 01:48 118/85 07/05/21 23:01 58 L 109/82 07/05/21 22:57 120 H 90 07/05/21 21:24 97 H 123/83 07/05/21 21:18 98 F 18 123/83 07/05/21 21:16 99 H 90 07/05/21 20:00 95 07/05/21 17:45 98.0 F 92 H 18 103/85 86 - Physical Examination General: No Apparent Distress HEENT: Positive: PERRL Neck: Positive: neck supple Cardiac: Positive: Reg Rate and Rhythm Lungs: Positive: Decreased Breath Sounds Neuro: Positive: Grossly Intact Abdomen: Positive: Soft Skin: Positive: Clear Extremities: Absent: edema
[2021-07-06] MEDS: APIXABAN 5 MG TAB PO SCH ×2 (13:41→21:32)
--- NOTE | 2021-07-06 13:42 | Progress Note ---
Assessment and Plan Assessment and plan: 65-year-old male with no significant past medical history presented through the emergency department with lethargy and altered mentation. Patient was evaluated through the emergency department and found to have on CTA a left MCA stroke complicated by hemiparesis, dysarthria, and dysphagia. Patient found to be outside therapeutic window for TPA. Patient admitted to medical floor and initiated on CVA protocol. #Acute left MCA CVA (new onset) #Right hemiparesis -CTA brain and neck is remarkable for left M2 stenosis -MRI findings is suggestive of left subacute inferior MCA infarct -Continue aspirin 325 mg daily and Lipitor 40 mg daily TTE revealing EF 55-60% and unremarkable for PFO or atrial fibrillation PT/OT consulted; appreciate recs. Initially recommended acute rehab; however, it was declined. Currently applying for subacute rehab status. #Uncontrolled hypertension -Continue nifedipine #Paroxysmal atrial fibrillation (new onset) EKG revealing SVT as high as 190s Cardiology consulted; appreciate recs. Starting p.o. metoprolol tartrate 50 mg every 8 hours for rate control. Recommended anticoagulation to be started for stroke prevention; however, the timing of initiation will be deferred to neurolo gy #Oropharyngeal dysphagia #Dysarthria Speech therapy consulted; appreciate recs. Continue dysphagia diet 07/01/2021. Follow-up echocardiogram. Await neurology consultation. Await PT/OT/ST evaluations. Continue secondary prevention with aspirin and Lipitor. 07/02/2021. Echocardiogram reveals LVEF of 55-60% and right ventricular systolic function normal. No PFO. Carotid ultrasound found to be negative. Await physical therapy recommendations. Speech therapy reports that patient demonstrates delayed oral transit time with a swallow reflex delay with pureed consistencies. Patient requires tactile stimulation to close his mouth for chewing as he fails to follow commands. With regular liquids, swallow reflex is timely with good laryngeal elevation. No evidence of aspiration was identified. Continue with dysphagia pured diet. Continue aspirin and Lipitor. Await neurology consultation 07/03/2021. Physical therapy recommends acute rehab. Continue aspirin and Lipitor. Await neurology consultation 07/04/2021. Physical therapy recommends acute rehab. Continue aspirin and Lipitor for secondary prevention. Await neurology recommendations. 07/05/2021. Patient found to have SVT and paroxysmal atrial fibrillation. Cardi ology consulted. Patient being started on metoprolol tartrate 50 mg every 8 hours for rate control. Anticoagulation initiation is being deferred to neurology. 07/06/2021. Patient was initiated on Eliquis 5 mg twice daily. Pending possible discharge home tomorrow after 24 hours without any bleeding or neurological change. #Advanced care planning -Disease education conducted, care plan discussed, diagnoses discussed, prognosis discussed, and patient acknowledges understanding with care plan -Time: +30 min #Discharge planning - Patient is pending 24-48 hours without bleeding while on anticoagulation. - Case management has been made aware. - Discharge is tentatively 24 hours. Disposition Plan: Pending possible discharge tomorrow. Total Time Spent with Patient (Minutes): 30 minutes History Interval history: No acute events overnight. Hospitalist Physical - Constitutional Vitals: Temp Pulse Resp BP Pulse Ox 98.6 F 77 18 121/85 95 07/06/21 04:35 07/06/21 10:13 07/06/21 04:35 07/06/21 10:13 07/06/21 10:00 General appearance: Present: no acute distress, well-nourished - EENT Eyes: Present: PERRL, EOM intact ENT: hearing intact, clear oral mucosa - Neck Neck: Present: supple, normal ROM - Respiratory Respiratory effort: normal Respiratory: bilateral: CTA - Cardiovascular Rhythm: regular Heart Sounds: Present: S1 & S2 - Extremities Extremities: no ischemia, pulses intact, pulses symmetrical, No edema, normal temperature, normal color Peripheral Pulses: within normal limits - Abdominal General gastrointestinal: soft, non-tender, non-distended, normal bowel sounds - Integumentary Integumentary: Present: clear, warm, dry - Psychiatric Psychiatric: appropriate mood/affect, cooperative - Neurologic Neurologic: CNII-XII intact, other (Right hemiparesis; 3/5 strength of right lower extremity) - Allied Health Allied health notes reviewed: nursing HEART Score - HEART Score Troponin: Troponin T < 0.010 ng/mL (0.00-0.029) 07/01/21 23:26 Results - Labs CBC & Chem 7: 07/03/21 04:16 07/03/21 04:16 Labs: Laboratory Last Values WBC 8.3 K/mm3 (4.5-11.0) 07/03/21 04:16 RBC 6.03 M/mm3 (3.65-5.03) H 07/03/21 04:16 Hgb 16.1 gm/dl (11.8-15.2) H 07/03/21 04:16 Hct 50.2 % (35.5-45.6) H 07/03/21 04:16 MCV 83 fl (84-94) L 07/03/21 04:16 MCH 27 pg (28-32) L 07/03/21 04:16 MCHC 32 % (32-34) 07/03/21 04:16 RDW 13.9 % (13.2-15.2) 07/03/21 04:16 Plt Count 238 K/mm3 (140-440) 07/03/21 04:16 Lymph % (Auto) 18.3 % (13.4-35.0) 07/03/21 04:16 Stewart % (Auto) 10.6 % (0.0-7.3) H 07/03/21 04:16 Eos % (Auto) 0.8 % (0.0-4.3) 07/03/21 04:16 Baso % (Auto) 0.4 % (0.0-1.8) 07/03/21 04:16 Lymph # (Auto) 1.5 K/mm3 (1.2-5.4) 07/03/21 04:16 Stewart # (Auto) 0.9 K/mm3 (0.0-0.8) H 07/03/21 04:16 Eos # (Auto) 0.1 K/mm3 (0.0-0.4) 07/03/21 04:16 Baso # (Auto) 0.0 K/mm3 (0.0-0.1) 07/03/21 04:16 Seg Neutrophils % 69.9 % (40.0-70.0) 07/03/21 04:16 Seg Neutrophils # 5.8 K/mm3 (1.8-7.7) 07/03/21 04:16 PT 12.9 Sec. (12.2-14.9) 06/30/21 13:11 INR 0.88 (0.87-1.13) 06/30/21 13:11 APTT 24.1 Sec. (24.2-36.6) L 06/30/21 13:11 Thrombin Time 17.5 Sec. (15.1-19.6) 06/30/21 13:11 Sodium 143 mmol/L (137-145) 07/03/21 04:16 Potassium 3.5 mmol/L (3.6-5.0) L 07/03/21 04:16 Chloride 106.5 mmol/L (98-107) 07/03/21 04:16 Carbon Dioxide 23 mmol/L (22-30) 07/03/21 04:16 Anion Gap 17 mmol/L 07/03/21 04:16 BUN 21 mg/dL (9-20) H 07/03/21 04:16 Creatinine 1.1 mg/dL (0.8-1.3) 07/03/21 04:16 Estimated GFR > 60 ml/min 07/03/21 04:16 BUN/Creatinine Ratio 19 % 07/03/21 04:16 Glucose 115 mg/dL (75-100) H 07/03/21 04:16 POC Glucose 115 mg/dL (70-105) H 07/03/21 21:56 Calcium 9.7 mg/dL (8.4-10.2) 07/03/21 04:16 Magnesium 2.00 mg/dL (1.7-2.3) 07/01/21 23:26 Total Bilirubin 1.40 mg/dL (0.1-1.2) H 06/30/21 13:11 AST 20 units/L (5-40) 06/30/21 13:11 ALT 18 units/L (7-56) 06/30/21 13:11 Alkaline Phosphatase 69 units/L (35-129) 06/30/21 13:11 Total Creatine Kinase 174 units/L (55-170) H 06/30/21 13:11 CK-MB (CK-2) 3.3 ng/mL (0.0-4.0) 06/30/21 13:11 CK-MB (CK-2) Rel Index 1.8 (0-4) 06/30/21 13:11 Troponin T < 0.010 ng/mL (0.00-0.029) 07/01/21 23:26 Total Protein 7.3 g/dL (6.3-8.2) 06/30/21 13:11 Albumin 4.5 g/dL (3.9-5) 06/30/21 13:11 Albumin/Globulin Ratio 1.6 % 06/30/21 13:11 Triglycerides 106 mg/dL (2-149) 07/03/21 04:58 Cholesterol 201 mg/dL (50-199) H 07/03/21 04:58 LDL Cholesterol Direct 104 mg/dL (50-130) 07/03/21 04:58 HDL Cholesterol 76 mg/dL (40-59) H 07/03/21 04:58 Cholesterol/HDL Ratio 2.64 % 07/03/21 04:58 Purcell/IV: Voiding Method Condom Catheter Active Medications - Current Medications Current Medications: Generic Name Dose Route Start Last Admin Trade Name Freq PRN Reason Stop Dose Admin Acetaminophen 650 mg 06/30/21 16:01 Acetaminophen 325 Mg Tab PO Q4H PRN Pain, Mild (1-3) Apixaban 5 mg 07/06/21 12:00 Apixaban 5 Mg Tab PO Q12HR [facility] Protocol Aspirin 81 mg 07/07/21 10:00 Aspirin Ec 81 Mg Tab PO QDAY SIVA Atorvastatin Calcium 40 mg 06/30/21 22:00 07/05/21 21:25 Atorvastatin 40 Mg Tab PO 40 mg QHS SIVA Administration Bisacodyl 10 mg 06/30/21 16:01 Bisacodyl 10 Mg Rect Supp WA QDAY PRN Constipation Hydralazine HCl 10 mg 07/01/21 10:21 07/03/21 22:11 Hydralazine 20 Mg/1 Ml Inj IV 10 mg Q4HR PRN Administration Hypertension Hydromorphone HCl 0.5 mg 06/30/21 16:01 Hydromorphone 1 Mg/1 Ml Inj IV Q23H PRN Pain , Severe (7-10) Losartan Potassium 50 mg 07/05/21 10:00 07/06/21 10:13 Losartan 50 Mg Tab PO 50 mg QDAY SIVA Administration Magnesium Hydroxide 30 ml 06/30/21 16:01 Magnesium Hydroxide (Mom) Oral Liqd Udc PO Q4H PRN Constipation Metoclopramide HCl 10 mg 06/30/21 16:01 Metoclopramide 10 Mg Tab PO Q6H PRN Nausea And Vomiting Metoprolol Tartrate 50 mg 07/05/21 13:00 07/06/21 04:38 Metoprolol Tartrate 50 Mg Tab PO 50 mg Q8H SIVA Administration Morphine Sulfate 1 mg 06/30/21 16:01 Morphine 2 Mg/1 Ml Inj IV Q8H PRN Pain, Moderate (4-6) Nifedipine 60 mg 07/01/21 08:00 07/06/21 10:13 Nifedipine Xl 60 Mg Tab PO 60 mg Q12HR SIVA Administration Ondansetron HCl 4 mg 06/30/21 16:01 Ondansetron 4 Mg/2 Ml Inj IV Q8H PRN Nausea And Vomiting Promethazine HCl 25 mg 06/30/21 16:01 Promethazine 25 Mg Rect Supp [place] Q6H PRN Nausea And Vomiting Sodium Chloride 10 ml 06/30/21 16:01 07/02/21 21:42 Sodium Chloride 0.9% 10 Ml Flush Syringe IV 10 ml PRN PRN Administration LINE FLUSH
--- NOTE | 2021-07-06 13:51 | Discharge Summary ---
Providers - Providers Date of Admission: 06/30/21 16:01 Date of discharge: 07/07/21 Attending physician: OLIVE VALENCIA MD 06/30/21 16:01 Consult to Case Management [CONS] Routine Services Needed at Discharge: Other Notified:: in am Additional Physician Instructions: D/C planning and placement Occupational Therapy Evaluate and Treat [CONS] Routine Comment: Reason For Exam: Neuro deficits Physical Therapy Evaluation and Treat [CONS] Routine Comment: Reason For Exam: Neuro deficits 06/30/21 16:02 Speech Therapy Evaluation and Treat [CONS] Routine Reason For Exam: swallow eval 06/30/21 18:15 Speech Therapy Evaluation and Treat [CONS] Stat Reason For Exam: cva 07/01/21 09:13 Consult to Physician [CONS] Routine Comment: Consulting Provider: EFREN MUNOZ Physician Instructions: Reason For Exam: CVA 07/01/21 12:26 Physical Therapy Evaluation and Treat [CONS] Stat Comment: Reason For Exam: Eval and Treat Primary care physician: RECEIVABLE CLERK Hospitalization Reason for admission: Acute CVA Condition: Stable Pertinent studies: Reviewed. Reviewed. Procedures: None. Hospital course: 65 YO Male with No PMH presents ED for evaluation. Patient is confused and lethargic and is unable provide history. Patient history taken EMS staff, ED staff, as well as hotel staff. Hotel staff report "he seemed out of it". Patient was found down and unresponsive in the parking lot of his room by hotel staff at a local extended stay hotel where the patient currently resides. EMS was notified and upon arrival the patient was found to have a neurologic deficit. A code stroke was called and the patient was transported to [facility] for further care and evaluation of the aforementioned symptoms. The patient was seen and evaluated in the emergency department. All lab and imaging studies reviewed. Patient found to have evidence of a left MCA stroke complicated by hemiparesis, dysarthria, and dysphagia. Patient found to be outside therapeutic window for TPA. Patient admitted to medical floor and initiated on CVA protocol. No reports of fever, chills, chest pain, palpitation, productive cough, skin rash, trauma, recent contact, or known exposure to COVID-19. No prior admission for review. No medication listed at time of admission for reconciliation. CT angio brain and neck was remarkable for left M2 stenosis; MRI brain was suggestive of left subacute inferior MCA infarct. The patient was started on aspirin 325 mg daily and Lipitor 40 mg daily. TTE revealed EF of 55-60% that was unremarkable for PFO or atrial fibrillation at that point in time. Patient was evaluated by PT/OT/speech speech therapy, and they recommended acute rehab (initially) followed by subacute rehab (patient is self- pay), and dysphagia diet. The patient was found to have SVT as high as the 190s, and cardiology was consulted. He was initiated on p.o. metoprolol tartrate 50 mg every 8 hours for rate control, and this has shown significant symptomatic control. Patient was then initiated on apixaban 5 mg twice daily for stroke prevention. Disposition: 01 HOME / SELF CARE / HOMELESS Final Discharge Diagnosis (Prints w/discharge instructions): Acute left MCA CVA, right hemiparesis, uncontrolled hypertension, paroxysmal atrial fibrillation (new onset), oropharyngeal dysphagia, dysarthria Time spent for discharge: 45 minutes Core Measure Documentation - Palliative Care Palliative Care/ Comfort Measures: Not Applicable - Core Measures Any of the following diagnoses?: none Exam - Constitutional Vitals: Temp Pulse Resp BP Pulse Ox 98.6 F 87 18 103/69 95 07/06/21 04:35 07/06/21 13:41 07/06/21 04:35 07/06/21 13:41 07/06/21 10:00 General appearance: Present: no acute distress, well-nourished - EENT Eyes: Present: PERRL, EOM intact ENT: hearing intact, clear oral mucosa, dentition normal - Neck Neck: Present: supple, normal ROM - Respiratory Respiratory effort: normal Respiratory: bilateral: CTA - Cardiovascular Rhythm: regular Heart Sounds: Present: S1 & S2 - Extremities Extremities: no ischemia, pulses intact, pulses symmetrical, No edema, normal temperature, normal color Peripheral Pulses: within normal limits - Abdominal General gastrointestinal: Present: soft, non-tender, non-distended, normal bowel sounds Male genitourinary: Present: deferred - Rectal Rectal Exam: deferred - Integumentary Integumentary: Present: clear, warm, dry - Musculoskeletal Musculoskeletal: right sided weakness (Right-sided hemiparesis; 3/5 strength and right lower extremity; 2/5 strength in right upper extremity) - Psychiatric Psychiatric: appropriate mood/affect, cooperative - Neurologic Neurologic: CNII-XII intact, moves all extremities - Allied Health Allied health notes reviewed: nursing Plan Activity: advance as tolerated Diet: low cholesterol, low salt Additional Instructions: 65 YO Male with No PMH presents ED for evaluation. Patient is confused and lethargic and is unable provide history. Patient history taken EMS staff, ED staff, as well as hotel staff. Hotel staff report "he seemed out of it". Patient was found down and unresponsive in the parking lot of his room by hotel staff at a local extended stay hotel where the patient currently resides. EMS was notified and upon arrival the patient was found to have a neurologic deficit. A code stroke was called and the patient was transported to [facility] for further care and evaluation of the aforementioned symptoms. The patient was seen and evaluated in the emergency department. All lab and imaging studies reviewed. Patient found to have evidence of a left MCA stroke complicated by hemiparesis, dysarthria, and dysphagia. Patient found to be outside therapeutic window for TPA. Patient admitted to medical floor and initiated on CVA protocol. No reports of fever, chills, chest pain, palpitation, productive cough, skin rash, trauma, recent contact, or known exposure to COVID-19. No prior admission for review. No medication listed at time of admission for reconciliation. CT angio brain and neck was remarkable for left M2 stenosis; MRI brain was suggestive of left subacute inferior MCA infarct. The patient was started on aspirin 325 mg daily and Lipitor 40 mg daily. TTE revealed EF of 55-60% that was unremarkable for PFO or atrial fibrillation at that point in time. Patient was evaluated by PT/OT/speech speech therapy, and they recommended acute rehab (initially) followed by subacute rehab (patient is self-pay), and dysphagia diet. The patient was found to have SVT as high as the 190s, and cardiology was consulted. He was initiated on p.o. metoprolol tartrate 50 mg every 8 hours for rate control, and this has shown significant symptomatic control. Patient was then initiated on apixaban 5 mg twice daily for stroke prevention. Care Plan Goals: Patient is medically clear for discharge. Assessment: 65 YO Male with No PMH presents ED for evaluation. Patient is confused and lethargic and is unable provide history. Patient history taken EMS staff, ED staff, as well as hotel staff. Hotel staff report "he seemed out of it". Patient was found down and unresponsive in the parking lot of his room by hotel staff at a local extended stay hotel where the patient currently resides. EMS was notified and upon arrival the patient was found to have a neurologic deficit. A code stroke was called and the patient was transported to [facility] for further care and evaluation of the aforementioned symptoms. The patient was seen and evaluated in the emergency department. All lab and imaging studies reviewed. Patient found to have evidence of a left MCA stroke complicated by hemiparesis, dysarthria, and dysphagia. Patient found to be outside therapeutic window for TPA. Patient admitted to medical floor and initiated on CVA protocol. No reports of fever, chills, chest pain, palpitation, productive cough, skin rash, trauma, recent contact, or known exposure to COVID-19. No prior admission for review. No medication listed at time of admission for reconciliation. CT angio brain and neck was remarkable for left M2 stenosis; MRI brain was suggestive of left subacute inferior MCA infarct. The patient was started on aspirin 325 mg daily and Lipitor 40 mg daily. TTE revealed EF of 55-60% that was unremarkable for PFO or atrial fibrillation at that point in time. Patient was evaluated by PT/OT/speech speech therapy, and they recommended acute rehab (initially) followed by subacute rehab (patient is self- pay), and dysphagia diet. The patient was found to have SVT as high as the 190s, and cardiology was consulted. He was initiated on p.o. metoprolol tartrate 50 mg every 8 hours for rate control, and this has shown significant symptomatic control. Patient was then initiated on apixaban 5 mg twice daily for stroke prevention. Follow up with: PRIMARY MD KARLOS [Primary Care Provider] - 3-5 Days GENE JENKINS MD [Staff Physician] - 7 Days Prescriptions: AtorvaSTATin [Lipitor] 40 mg PO QHS #30 tablet Losartan [Cozaar] 50 mg PO QDAY #30 tablet Apixaban [Eliquis] 5 mg PO Q12HR #60 tablet Aspirin EC [Halfprin EC] 81 mg PO QDAY #30 tablet Metoprolol [Lopressor TAB] 50 mg PO Q8H #90 tablet NIFEdipine XL [Procardia Xl] 60 mg PO Q12HR #30 tablet
[2021-07-06 14:19] LABS: Hematocrit 50.1 % (35.5-45.6); Hemoglobin 15.8 gm/dl (11.8-15.2); Mean Corpuscular HGB Conc 32 % (32-34); Mean Corpuscular Volume 84 fl (84-94); Platelet Count 174 K/mm3 (140-440); Red Blood Count 5.95 M/mm3 (3.65-5.03); Red Cell Distribution Width 13.7 % (13.2-15.2)
[2021-07-06 14:30] LABS: INR 0.96 (0.87-1.13)
[2021-07-06 14:31] LABS: Partial Thromboplastin Time 28.6 Sec. (24.2-36.6)
[2021-07-07] MEDS: METOPROLOL TARTRATE 50 MG TAB PO SCH ×3 (05:11→22:01)
[2021-07-07 09:17] LABS: Hemoglobin 15.2 gm/dl (11.8-15.2)
[2021-07-07] MEDS: APIXABAN 5 MG TAB PO SCH ×2 (09:44→22:00)
[2021-07-07] MEDS: LOSARTAN 50 MG TAB PO SCH (09:44)
[2021-07-07] MEDS: NIFEdipine XL 60 MG TAB PO SCH ×2 (09:45→22:00)
[2021-07-07] MEDS ORDERED: ASPIRIN EC 81 MG TAB PO SCH (10:00)
--- NOTE | 2021-07-07 12:26 | Progress Note ---
Assessment and Plan Assessment and Plan 65 YO Male with No PMH presents ED for evaluation. Patient is confused and lethargic and is unable provide history. Patient history taken EMS staff, ED staff, as well as hotel staff. Hotel staff report "he seemed out of it". Patient was found down and unresponsive in the parking lot of his room by hotel staff at a local extended stay hotel where the patient currently resides. EMS was notified and upon arrival the patient was found to have a neurologic deficit. A code stroke was called and the patient was transported to [facility] for further care and evaluation of the aforementioned symptoms. - Patient Problems # New onset speech impairment and right side weakness -r/o Acute CVA (cerebrovascular accident) -Ct brain is suggestive of left MCA infarct -CTA brain and neck is remarkable for left M2 stenosis -MRI findings is suggestive of left subacute inferior MCA infarct -he is on ASA and Lipitor -LDL#104 -Echo is with EF#55-60% negative bubble negative -PT and ST evaluate # New onset AF noted on monitor -cardiology evaluate -No objection for AC oral -follow up CT brain prn -need rehabilitation # Accelerated hypertension Monitor blood pressure every shift, continue medical management, permissive hypertension overnight. # Right hemiparesis -Physical therapy consulted, supportive care, continue medical management. # Dysphagia Speech therapy consulted, dysphagia diet as per speech therapy recommendations. # DVT prophylaxis -SCDs bilateral lower extremities while in bed Subjective Date of service: 07/07/21 Principal diagnosis: Acute CVA, paroxysmal atrial fibrillation Interval history: still with right side weakness speech is better MRI brain is noted Developed AF on monitor yesterday agree on AC need rehabilitation Objective - Vital Sign Vital Signs - 12hr 07/07/21 07/07/21 07/07/21 04:03 05:11 09:44 Temperature 97.9 F Pulse Rate 83 83 83 Respiratory 18 Rate Blood Pressure 119/85 119/85 119/85 O2 Sat by Pulse 95 Oximetry - General Apperance Constitutional: comfortable - EENT EENT: PERRL, mucous membranes moist - Respiratory Respiratory: lungs clear, rhonchi - Cardiovascular Cardiovascular: other (AF) Extremities: no peripheral edema bilat - Gastrointestinal Gastrointestinal: normoactive bowel sounds - Integumentary Integumentary: normal - Neurologic Cranial nerve examination: PERRL, EOMI, facial droop Speech examination: other (slurred ) Detailed motor examination: other (right upper 1/5 right lower 3/5 ) - Laboratory Findings CBC and BMP: 07/07/21 08:46 07/06/21 14:01 Abnormal Lab Findings: Abnormal Labs 06/30/21 06/30/21 06/30/21 13:11 13:11 13:11 RBC 5.75 H Hgb 16.2 H Hct 47.4 H MCV 82 L MCH Lymph % (Auto) 8.2 L Hubbard % (Auto) Lymph # (Auto) 0.7 L Hubbard # (Auto) Seg Neutrophils % 86.0 H APTT 24.1 L Potassium Chloride BUN Creatinine Glucose POC Glucose Total Bilirubin Total Creatine Kinase 174 H Cholesterol HDL Cholesterol 06/30/21 07/02/21 07/02/21 13:11 04:39 04:39 RBC 5.89 H Hgb 15.7 H Hct 48.8 H MCV 83 L MCH 27 L Lymph % (Auto) Hubbard % (Auto) 9.9 H Lymph # (Auto) Hubbard # (Auto) 0.9 H Seg Neutrophils % 73.3 H APTT Potassium 3.5 L D Chloride 107.1 H BUN Creatinine Glucose 101 H 114 H POC Glucose Total Bilirubin 1.40 H Total Creatine Kinase Cholesterol HDL Cholesterol 07/02/21 07/03/21 07/03/21 21:15 04:16 04:16 RBC 6.03 H Hgb 16.1 H Hct 50.2 H MCV 83 L MCH 27 L Lymph % (Auto) Hubbard % (Auto) 10.6 H Lymph # (Auto) Hubbard # (Auto) 0.9 H Seg Neutrophils % APTT Potassium 3.5 L Chloride BUN 21 H Creatinine Glucose 115 H POC Glucose 107 H Total Bilirubin Total Creatine Kinase Cholesterol HDL Cholesterol 07/03/21 07/03/21 07/03/21 04:58 07:59 11:12 RBC Hgb Hct MCV MCH Lymph % (Auto) Hubbard % (Auto) Lymph # (Auto) Hubbard # (Auto) Seg Neutrophils % APTT Potassium Chloride BUN Creatinine Glucose POC Glucose 125 H 127 H Total Bilirubin Total Creatine Kinase Cholesterol 201 H HDL Cholesterol 76 H 07/03/21 07/03/21 07/06/21 16:45 21:56 14:01 RBC 5.95 H Hgb 15.8 H Hct 50.1 H MCV MCH 27 L Lymph % (Auto) Hubbard % (Auto) Lymph # (Auto) Hubbard # (Auto) Seg Neutrophils % APTT Potassium Chloride BUN Creatinine Glucose POC Glucose 118 H 115 H Total Bilirubin Total Creatine Kinase Cholesterol HDL Cholesterol 07/06/21 07/07/21 14:01 08:46 RBC Hgb Hct 47.0 H MCV MCH Lymph % (Auto) Hubbard % (Auto) Lymph # (Auto) Hubbard # (Auto) Seg Neutrophils % APTT Potassium Chloride BUN Creatinine 1.5 H Glucose POC Glucose Total Bilirubin Total Creatine Kinase Cholesterol HDL Cholesterol
[2021-07-08 04:49] LABS: Hematocrit 46.7 % (35.5-45.6); Hemoglobin 15.4 gm/dl (11.8-15.2); Mean Corpuscular HGB Conc 33 % (32-34); Mean Corpuscular Volume 83 fl (84-94); Platelet Count 175 K/mm3 (140-440); Red Blood Count 5.61 M/mm3 (3.65-5.03); Red Cell Distribution Width 13.5 % (13.2-15.2)
[2021-07-08] MEDS: METOPROLOL TARTRATE 50 MG TAB PO SCH ×2 (05:51→13:24)
--- NOTE | 2021-07-08 09:55 | Cat Scan Report ---
CT HEAD WITHOUT CONTRAST INDICATION : confusion,on AC. TECHNIQUE: Axial imaging performed from the skull apex through the skull base without the use of con trast. Sagittal and coronal reformatted images. All CT scans at this location are performed using C T dose reduction for ALARA by means of automated exposure control. COMPARISON: CT head dated 06/30/2021. MR brain dated 07/04/2021 FINDINGS: Parenchyma: Evolving left posterior temporal and parietal infarct is noted and appears stable in siz e and contour. Minimal petechial hemorrhagic change has developed in the left posterior temporal lobe which is best demonstrated on images 14 and 15. No large uncontained hemorrhage is identified. No ne w areas of ischemic change are appreciated. Volume loss and chronic white matter changes are again no dorothy and stable. Ventricles: Ventricles are normal in size and appear symmetric. Bones: No acute osseous abnormality. Sinuses: Sinuses and mastoid air cells are clear. Soft tissues: Soft tissues including the orbits appear normal. IMPRESSION: Evolving infarct in the posterior left MCA distribution with evidence of minimal petechia l hemorrhagic change within the left posterior temporal lobe since the previous exam. No large uncont ained hemorrhage is appreciated. Signer Name: Cortez Rosales Jr, MD Signed: 07/08/2021 9:51 AM Workstation Name: [id number]
[2021-07-08] MEDS ORDERED: APIXABAN 5 MG TAB PO SCH (10:52)
--- NOTE | 2021-07-08 10:57 | Progress Note ---
Assessment and Plan Assessment and Plan 65 YO Male with No PMH presents ED for evaluation. Patient is confused and lethargic and is unable provide history. Patient history taken EMS staff, ED staff, as well as hotel staff. Hotel staff report "he seemed out of it". Patient was found down and unresponsive in the parking lot of his room by hotel staff at a local extended stay hotel where the patient currently resides. EMS was notified and upon arrival the patient was found to have a neurologic deficit. A code stroke was called and the patient was transported to [facility] for further care and evaluation of the aforementioned symptoms. - Patient Problems # New onset speech impairment and right side weakness -r/o Acute CVA (cerebrovascular accident) -Ct brain is suggestive of left MCA infarct -CTA brain and neck is remarkable for left M2 stenosis -MRI findings is suggestive of left subacute inferior MCA infarct -he is on ASA and Lipitor -LDL#104 -Echo is with EF#55-60% negative bubble negative -PT and ST evaluate # New onset AF noted on monitor -cardiology evaluate -No objection for AC oral -follow up CT brain today showed left posterior MCA infarct with slight petechial hemorrhage is noted -need rehabilitation -suggest cut down Eliquis to 2.5 mg bid X 2 weeks , Stop ASA -repeat CT brain on Sunday or earlier if needed # Accelerated hypertension Monitor blood pressure every shift, continue medical management, permissive hypertension overnight. # Right hemiparesis -Physical therapy consulted, supportive care, continue medical management. # Dysphagia Speech therapy consulted, dysphagia diet as per speech therapy recommendations. # DVT prophylaxis -SCDs bilateral lower extremities while in bed Subjective Date of service: 07/08/21 Principal diagnosis: Acute CVA, paroxysmal atrial fibrillation Interval history: still with right side weakness speech is better MRI brain is noted Developed AF on monitor yesterday agree on AC need rehabilitation CT repeat today showed left MCA posterior with slight petechial hemorrhage is noted Objective - Vital Sign Vital Signs - 12hr 07/08/21 05:20 Temperature 98.6 F Pulse Rate 81 Respiratory 18 Rate Blood Pressure 115/83 [Left] O2 Sat by Pulse 98 Oximetry - General Apperance Constitutional: comfortable - EENT EENT: PERRL, mucous membranes moist - Respiratory Respiratory: lungs clear, rhonchi - Cardiovascular Cardiovascular: other (AF) Extremities: no peripheral edema bilat, no clubbing, cyanosis - Gastrointestinal Gastrointestinal: normoactive bowel sounds - Integumentary Integumentary: normal - Neurologic Cranial nerve examination: PERRL, EOMI, facial droop Speech examination: intact Detailed motor examination: other (right side 1-2/5 upper and 3+/5 lower ) - Laboratory Findings CBC and BMP: 07/08/21 04:27 07/06/21 14:01 Abnormal Lab Findings: Abnormal Labs 06/30/21 06/30/21 06/30/21 13:11 13:11 13:11 WBC RBC 5.75 H Hgb 16.2 H Hct 47.4 H MCV 82 L MCH Lymph % (Auto) 8.2 L Richardson % (Auto) Lymph # (Auto) 0.7 L Richardson # (Auto) Seg Neutrophils % 86.0 H APTT 24.1 L Potassium Chloride BUN Creatinine Glucose POC Glucose Total Bilirubin Total Creatine Kinase 174 H Cholesterol HDL Cholesterol 06/30/21 07/02/21 07/02/21 13:11 04:39 04:39 WBC RBC 5.89 H Hgb 15.7 H Hct 48.8 H MCV 83 L MCH 27 L Lymph % (Auto) Richardson % (Auto) 9.9 H Lymph # (Auto) Richardson # (Auto) 0.9 H Seg Neutrophils % 73.3 H APTT Potassium 3.5 L D Chloride 107.1 H BUN Creatinine Glucose 101 H 114 H POC Glucose Total Bilirubin 1.40 H Total Creatine Kinase Cholesterol HDL Cholesterol 07/02/21 07/03/21 07/03/21 21:15 04:16 04:16 WBC RBC 6.03 H Hgb 16.1 H Hct 50.2 H MCV 83 L MCH 27 L Lymph % (Auto) Richardson % (Auto) 10.6 H Lymph # (Auto) Richardson # (Auto) 0.9 H Seg Neutrophils % APTT Potassium 3.5 L Chloride BUN 21 H Creatinine Glucose 115 H POC Glucose 107 H Total Bilirubin Total Creatine Kinase Cholesterol HDL Cholesterol 07/03/21 07/03/21 07/03/21 04:58 07:59 11:12 WBC RBC Hgb Hct MCV MCH Lymph % (Auto) Richardson % (Auto) Lymph # (Auto) Richardson # (Auto) Seg Neutrophils % APTT Potassium Chloride BUN Creatinine Glucose POC Glucose 125 H 127 H Total Bilirubin Total Creatine Kinase Cholesterol 201 H HDL Cholesterol 76 H 07/03/21 07/03/21 07/06/21 16:45 21:56 14:01 WBC RBC 5.95 H Hgb 15.8 H Hct 50.1 H MCV MCH 27 L Lymph % (Auto) Richardson % (Auto) Lymph # (Auto) Richardson # (Auto) Seg Neutrophils % APTT Potassium Chloride BUN Creatinine Glucose POC Glucose 118 H 115 H Total Bilirubin Total Creatine Kinase Cholesterol HDL Cholesterol 07/06/21 07/07/21 07/08/21 14:01 08:46 04:27 WBC 11.4 H RBC 5.61 H Hgb 15.4 H Hct 47.0 H 46.7 H MCV 83 L MCH Lymph % (Auto) Richardson % (Auto) Lymph # (Auto) Richardson # (Auto) Seg Neutrophils % APTT Potassium Chloride BUN Creatinine 1.5 H Glucose POC Glucose Total Bilirubin Total Creatine Kinase Cholesterol HDL Cholesterol
[2021-07-08] MEDS: LOSARTAN 50 MG TAB PO SCH (11:05)
[2021-07-08] MEDS: NIFEdipine XL 60 MG TAB PO SCH (11:05)
[2021-07-08] MEDS ORDERED: APIXABAN 2.5 MG TAB PO SCH (11:30)
[2021-07-08 12:11] VITALS: BP 123/84
== END 2021-07-08 16:41 | disposition home health service (06) | DRG 65 ==
LOC: ED 12:20 → 3A 16:01
PROVIDERS: ADMIT Internal Medicine; ATTEND Student in an Organized Health Care Education/Training Program
DX: I63.512 Cerebral infarction due to unspecified occlusion or stenosis of left middle cerebral artery (principal); G81.91 Hemiplegia, unspecified affecting right dominant side; I10 Essential (primary) hypertension; R13.12 Dysphagia, oropharyngeal phase; I48.0 Paroxysmal atrial fibrillation; Z88.0 Allergy status to penicillin
CPT/HCPCS: 36415; 70450; 70496; 70498; 70551; 80048; 80053; 80061; 82550; 82553; 82565; 82962; 83735; 84484; 85014; 85018; 85025; 85027; 85610; 85670; 85730; 93005; 93306; 93880; G0378; J3490; J9280; C8929; J0360; J1644; J7040; Q9967